=== PATIENT | male | born 1955 | race Asian ===

== ENCOUNTER 2019-12-17 09:23 | Inpatient (IN) | payer BC ==
[~2019-12-17] VITALS: Ht 167.6 cm; Wt 63.0 kg
--- NOTE | 2019-12-17 09:34 | NUR ---
PATIENT BIB [facility] PER MEDIC FROM HOME , C/O COUGH AND BODY ACHES, FEVER, X1WEEK. PER MEDIC AT HOME HAS BEEN SICK. PER PATIENT "I FELT DIZZY 30MINS PRIOR TO ARRIVAL AND FELL AT HOME AND MY CALLED AN AMBULANCE". PATIENT DENIES DIZZINESS OR ANY PAIN AT THIS TIME, NO KO. PATIENT IS AAOX4, NO DISTRESS NOTED, RESP E/U. NO NEURO DEFICITS NOTED AT THIS TIME. SKIN INTACT, PINK, WARM AND DRY. PATIENT GOWNED, PLACED ON FULL CM, NSR NOTED. BED AT LOWEST POSITION, SIDE RAILS UP X2 FOR SAFETY, CALL LIGHT WITHIN REACH. PATIENT AWAITING MSE BY .
--- NOTE | 2019-12-17 09:59 | NUR ---
DR JACKSON AT BED SIDE FOR MSE TO PATIENT.
--- NOTE | 2019-12-17 10:05 | NUR ---
EKG IN PROGRESS BY EMT "CHRISTINE".
[2019-12-17 10:07] LABS: BASOPHIL % 0.3 % (0-2); PLATELET COUNT 136 x10^3mcL (130-400); RED CELL DISTRIBUTION WIDTH 12.5 % (11.5-14.5)
[2019-12-17 10:41] LABS: T3 TOTAL 0.58 ng/mL
[2019-12-17 10:47] LABS: ALBUMIN 3.7 g/dL (3.4-5.0); ALKALINE PHOSPHATASE 47 U/L (46-116); ALT/SGPT 35 U/L (16-63); AST/SGOT 29 U/L (15-37); BILIRUBIN TOTAL 0.5 mg/dL (0.20-1.00); C REACTIVE PROTEIN 3.5 mg/dL (<=0.9); CALCIUM 9.2 mg/dL (8.5-10.1); CARBON DIOXIDE 25.5 mmol/L (21-32); CHLORIDE SERUM 88 mmol/L (98-107); CREATININE SERUM 0.9 mg/dL (0.7-1.3); GFR1 > 60 mL/min; GLUCOSE SERUM 142 mg/dL (74-106); POTASSIUM SERUM 3.9 mmol/L (3.5-5.1); TOTAL PROTEIN, SERUM 7.7 g/dL (6.4-8.2)
[2019-12-17 11:23] LABS: CK-MB 0.8 ng/mL (0-3.6)
[2019-12-17 11:25] LABS: FREE T4 1.12 ng/dL (0.76-1.46); FREE THYROXINE INDEX 2.6 ug/dL (1.4-4.5); T4(THYROXINE) 6.3 ug/dL (4.7-13.3)
--- NOTE | 2019-12-17 11:50 | NUR ---
DR JOHANSEN AT THE BEDSIDE DISCUSSING PLAN OF CARE TO PATIENT.
--- NOTE | 2019-12-17 12:01 | NUR ---
MEDICATED PER MD ORDERS, SEE EMAR. PT VERBALIZED UNDERSTANDING OF MEDICATION TEACHING. IV FLUIDS INFUSING, NO INFILTRATION OR PAIN NOTED TO IV SITE WHEN FLUSHED. WILL CONT TO MONITOR.
[2019-12-17] MEDS ORDERED: AMLODIPINE BES1 CAP PO (12:04)
--- NOTE | 2019-12-17 12:05 | NUR ---
RT AT BED SIDE DRAWING BLOOD GAS.
[2019-12-17 12:11] LABS: SODIUM SERUM 122 mmol/L (136-145)
--- NOTE | 2019-12-17 12:15 | NUR ---
SPOKE TO PATIENT , PER PATIENT OK TO UP DATE . AWARE PATIENT IS ADMITTED TO TELE.
[2019-12-17 12:19] LABS: ERYTHROCYTE SED RATE 16 mm/hr (0-20)
[2019-12-17 12:36] LABS: microscopic required? YES; urine erythrocyte TRACE (NEGATIVE)
--- NOTE | 2019-12-17 13:00 | NUR ---
ASSISTED PT TO BEDSIDE CAMMODE, PT AMBULATED WITH A STEADY GAIT.
--- NOTE | 2019-12-17 13:15 | NUR ---
ASSISTED PT FROM BEDSIDE CAMMODE BACK TO ER [place]. NO DISTRESS NOTED, RESP E/U. WILL CONT TO MONITOR.
--- NOTE | 2019-12-17 13:40 | NUR ---
GAVE REPORT TO LIVIER ON TELE UNIT WHO IS RECEIVING REPORT FOR DENIA, WHO WILL ASSUME FURTHER CARE OF THIS PATIENT.
[2019-12-17 14:39] VITALS: BP 148/84
--- NOTE | 2019-12-17 14:52 | NUR ---
RECEIVED PT FROM ER, PT ADMIT FOR SYNCOPE, INFLUENZA B, DEHYDRATION. PT IS A/O X4, VERBAL RESPONSIVE AT THIS MOMENT, LUNG SOUND CLEAR BILATERAL, OCCASIONALLY DRY COUGH, DENY ANY SOB. PO2 96% IN ROOM AIR. PT IS ON TELE 32. NSR, DENY ANY CHEST PAIN OR DISCOMFORT. BOWEL SOUND PRESENT ALL 4 QUADRANTS, NO DISTENTION, NO TENDER. PEDAL PULSE PRESENT BOTH FEET, NO EDEMA, IV AT RIGHT AC, NO LEAKING, NO INFILTRATION. ALL ADLS ASSIST, ALL NEED MET, CALL LIGHT IN REACH, WILL CONTINUE TO MONITOR.
--- NOTE | 2019-12-17 16:56 | NUR ---
AT 1440 - TOOK OVER CARE OF PATIENT. PATIENT IS ON ISOLATION FOR INFLUENZA B. IV INFUSION OF NS COMMENCED AT 100 ML/HR. PATIENT GIVEN SNACK AND DRINKS. ENCOURAGED HYDRATION. INSTRUCTED TO CALL FOR NURSE IF HE NEEDS TO GET OUT OF BED. AT 1500 - GIVEN TYLANOL PER EMAR FOR TEMP OF 100.3. PATIENT HAS A DRY COUGH. AT 1600 - AMBULATED TO BATHROOM AND BACK TO BED. PATIENT HAS DIARRHEA.
[2019-12-17 18:00] VITALS: BP 134/80
--- NOTE | 2019-12-17 19:06 | NUR ---
LAST TEMP 99.8. PATIENT WAS ABLE TO EAT SMALL AMOUNT OF FOOD FOR DINNER. IV INFUSING NS AT 100 ML/HR. WILL ENDORSE CARE TO NIGHT NURSE.
[2019-12-17 20:00] VITALS: BP 126/76
[2019-12-18] VITALS (7 sets, daily range): BP systolic 103–141; BP diastolic 62–84
--- NOTE | 2019-12-18 04:05 | NUR ---
@1945 RECEIVED A/A/O X4.DENIES ANY DISCOMFORT @ THIS TIME.IVF NS @ 100 ML/HR INFUSING WELL.DENIES SOB.O2 SAT ON RA 98%.TELE SHOWED SR.
--- NOTE | 2019-12-18 04:10 | NUR ---
TYLENOL PO ADM. C/O PRODUCTIVE COUGH WITH GREENISH PLEGM,SMALL IN AMOUNT& REQUESTED MED FOR COUGH.EXPLAINED TO PT HAS NO MED FOR COUGH @ THIS TIME,BUT WILL CALL MD FOR MED.PT VERBALIZED UNDERSTANDING OF THE EXPLAINATION GIVEN.
--- NOTE | 2019-12-18 04:15 | NUR ---
@3687 WAS CALLED RE: COUGH MED; RESPONDED & STATED WILL ENTER ORDER.
--- NOTE | 2019-12-18 04:18 | NUR ---
@0740 TESSALON PO FOR COUGH ADM.
--- NOTE | 2019-12-18 04:20 | NUR ---
@0000 TEMP 100.2.WILL CON'T TO MONITOR TEMP.
--- NOTE | 2019-12-18 04:21 | NUR ---
0400 TEMP 98.2 AXILLARY.IVF INFUSING WELL.
--- NOTE | 2019-12-18 06:40 | NUR ---
ENDORSED IN NO ACUTE DISTRESS.IVF INFUSING WELL.SAFETY MAINTAINED.CALL LIGHT WITHIN REACH.
[2019-12-18 07:31] LABS: BASOPHIL % 0.4 % (0-2); RED CELL DISTRIBUTION WIDTH 12.1 % (11.5-14.5)
[2019-12-18 07:47] LABS: PLATELET COUNT 125 x10^3mcL (130-400)
[2019-12-18 08:32] LABS: CALCIUM 8.2 mg/dL (8.5-10.1); CARBON DIOXIDE 24.4 mmol/L (21-32); CHLORIDE SERUM 96 mmol/L (98-107); CREATININE SERUM 0.8 mg/dL (0.7-1.3); GFR1 > 60 mL/min; GLUCOSE SERUM 105 mg/dL (74-106); POTASSIUM SERUM 3.3 mmol/L (3.5-5.1); SODIUM SERUM 130 mmol/L (136-145)
--- NOTE | 2019-12-18 09:45 | NUR ---
AT 0800 - RECEIVED PATIENT FROM NIGHT NURSE. AWAKE, ALERT AND ORIENTED TO PERSON, PLACE, TIME AND SITUATION. NO DIZZINESS AT THIS TIME BUT PATIENT REPORTS GENERALIZED WEAKNESS AND MALAISE. DECREASED APPETITE. RESPIRATIONS REGULAR. ON ROOM AIR. O2 SAT 99%. DRY COUGH. IV INFUSING NS AT 100ML/HR. PATIENT IS ON ISOLATION FOR R/O COVID-19. AT 0900 - GIVEN 20 MEQ KCL PO FOR K+ LEVEL OF 3.3. ALSO MEDICATED WITH TESSALON PEARLES FOR COUGH. AT 0940 - RECEIVED CALL FROM LAB WITH RESULTS. PATIENT IS POSITIVE FOR COVID-19. MACADAM RAKER MURRAY MADE AWARE.
--- NOTE | 2019-12-18 10:52 | NUR ---
CALLED TO [facility] AND SPOKE W/ [employer] AND INFORMED OF THE RESULTS OF THE COVID-19 WHICH IS POSITIVE.SHE'S REQUESTING TO FAX THE RESULTS AND THE FACE SHEET. ASKED THEIR FAX NO.[phone].
--- NOTE | 2019-12-18 16:56 | NUR ---
AT 1237 - TEMP 102.1 CHARGE NURSE IVONE CALLING [employer] WORKER MURRAY TO NOTIFY OF PATIENT'S FEVER. AT 1245 - MEDICATED WITH TYLANOL PER EMAR. PATIENT ENCOURAGED WITH PO FLUID HYDRATION. IV INFUSING NS AT 100ML/HR NS. PLACED ON SUPPLIMENTAL O2 VIA NC AT 2L/MIN. PROVIDED WITH INSENTIVE SPIROMETER AND INSTRUCTED IN USE. ENCOURAGED TO USE AT LEAST 10 X Q HR. AT 1515 - RESTING QUIETLY. HR 80'S. O2 SAT 97%. TEMP 99.7.
--- NOTE | 2019-12-18 18:38 | NUR ---
AWAKE, ALERT AND ORIENTED. CURRENTLY AFEBRILE. BP STABLE. MONITOR SHOWING SINUS RHYTHM; RATE 80'S & 90'S. NO C/O PAIN. RESPIRATIONS REGULAR. ON TESSALON PEARLES FOR COUGH. REMAINS ON O2 VIA NC AT 2L/MIN. O2 SAT 96-99%. USING INSENTIVE SPIROMETER EFFECTIVELY. TAKING PO LIQUIDS BUT APPETITE REMAINS VERY POOR. IV INFUSING NS AT 100 ML/HR. VOIDING IN URINAL AND BATHROOM. GOOD URINE OUTPUT. ISOLATION FOR COVID-19 MAINTAINED. WILL ENDORSE CARE TO NIGHT NURSE.
--- NOTE | 2019-12-18 19:36 | NUR ---
Pt. received from day shift, currently awake. Pt. is a/o x4, able to make most needs known, able to follow commands, no c/o h/a. Pt. is breathing even and unlabored, on 2L via NC no c/o of SOB or s/o distress. Pt. noted to have a fever during day shift, will continue to monitor. Pt. at this time has no c/o chest pain, pain or discomfort. Otherwise, pt. stable, pt. educated on when and how to use call light system, pt. call light placed within reach, will continue to monitor.
--- NOTE | 2019-12-19 00:07 | NUR ---
pT. C/O OF H/A DURING SHIFT, MEDICATED W/ TYLENOL ORDERED. OTHERWISE, PT. STABLE, WILL CONTINUE TO MONITOR PT.
--- NOTE | 2019-12-19 04:11 | NUR ---
Pt. at this time says, h/a came back. dull pain 11/29, pt. requesting for tylenol. Will medicate as ordered and continue to monitor.
[2019-12-19 04:28] VITALS: BP 141/82
--- NOTE | 2019-12-19 05:57 | NUR ---
Pt. noted to be asleep throughout shift, IV site patent and in tact. Pt. ambulatory to the restroom, pt. states he passed urine and passed a small but formed bowel movement throughout shift. Pt. c/o of h/a 2x throughout shift, and was medicated with tylenol each time. Pt. states it helped. Pt. noted to have low grade fever at beginning of shift, pt. was given tylenol with h/a, and this morning, temp was 98.0. Otherwise, pt. stable, pt. breathing even and unlabored, on 2L via NC, O2 sat at 97%, will continue to monitor and endorse care to next shift RN.
[2019-12-19 08:11] VITALS: BP 132/80
[2019-12-19 09:09] LABS: BASOPHIL % 0.3 % (0-2); PLATELET COUNT 134 x10^3mcL (130-400); RED CELL DISTRIBUTION WIDTH 12.4 % (11.5-14.5)
[2019-12-19 09:12] LABS: CALCIUM 8.4 mg/dL (8.5-10.1); CARBON DIOXIDE 25.3 mmol/L (21-32); CHLORIDE SERUM 93 mmol/L (98-107); CREATININE SERUM 0.8 mg/dL (0.7-1.3); GFR1 > 60 mL/min; GLUCOSE SERUM 140 mg/dL (74-106); SODIUM SERUM 126 mmol/L (136-145)
--- NOTE | 2019-12-19 11:14 | NUR ---
AT 0800 - RECEIVED PATIENT FROM NIGHT NURSE. AWAKE, ALERT AND ORIENTED X 4. MONITOR SHOWING SINUS RHYTHM; RATE 78. AFEBRILE. BP WNL. RESPIRATIONS REGULAR. O2 SAT 100% ON 2L VIA NC. PATIENT REPORTS USING INSENTIVE SPIROMETER. DENIES ANY SHORTNESS OF BREATH. SAT ON SIDE OF BED FOR BREAKFAST. AT 0920 - PATIENT WAS ABLE TO TOLERATE ONLY 20% OF FOOD ON BREAKFAST TRAY. GIVEN TESSALON PEARLES PER EMAR FOR PERSISTANT COUGH. MINIMAL SPUTUM. PATIENT SAT OUT OF BED FOR SHORT TIME. GOOD ACTIVITY TOLERANCE. AT 1050 - GIVEN 40 MEQ KCL PO FOR K+ LEVEL OF 3.0 AND 2 G SODIUM PO FOR NA LEVEL OF 126.
[2019-12-19 12:36] VITALS: BP 120/75
[2019-12-19 14:50] VITALS: BP 132/69
--- NOTE | 2019-12-19 16:45 | NUR ---
AT 1450 - TEMP 101.7 MEDICATED WITH TYLANOL PER EMAR. IV IN RAC INFILTRATED. CATHETER REMOVED INTACT. IV RESITED IN LFA AND IV INFUSION OF NS RESUMED AT 100 ML/HR. PATIENT CONTINUES TO HAVE DRY COUGH WITH SCRATCHY THROAT. AT 1640 - RECEIVED CALL FROM DR GO. UPDATED ON PATIENT CONDITION. CONTINUE WITH TAMIFLU. HE WILL SEE PATIENT LATER TODAY.
[2019-12-19 17:53] VITALS: BP 130/79
--- NOTE | 2019-12-19 18:54 | NUR ---
AT 1740 - TEMP 99.6 BP STABLE. O2 SAT 96% ON 2L. PATIENT USING INSENTIVE SPIROMETER. AT 1800 - REMAINS UNCHANGED. MONITOR SHOWING SINUS RHYTHM; RATE 80. NO C/O PAIN. AMBULATES TO BATHROOM FOR TOILET NEEDS. TAKING PO FLUIDS BUT APPETITE REMAINS POOR. C/O PERSISTANT COUGH, GENERALIZED WEAKNESS AND MALAISE. WILL ENDORSE CARE TO NIGHT NURSE.
[2019-12-19 20:20] VITALS: BP 131/78
--- NOTE | 2019-12-19 20:20 | NUR ---
PT IS A/O x4. TELE #32, NSR. DENIES ANY CHEST PAIN OR PRESSURE. PULSES ARE PRESENT. NO EDEMA NOTED. LUNGS CLEAR IN ALL FEILDS. ON 2L NC. COUGH NOTED, PT REPORTS SCANT SPUTUM, CLEAR. BOWEL SOUNDS ARE PRESENT x4. GENERAL WEAKNESS. PT NOTED TO NEED ASSISTANCE FOR AMBULATION, SOB AND FATIGUE. SKIN INTACT. COMPLAIN OF ROBIN, 4/10. TYLENOL GIVEN PER EMAR. IV ON LFA INTACT AND PATENT. NO SIGN OF INFILTRATION NOTED. PT ON DROPLET/CONTACT ISO, POSTIVE FOR COVID19. BED IS AT LOWEST SETTING CALL LIGHT WITHIN REACH. WILL CONTINUE TO MONTIOR.
--- NOTE | 2019-12-20 06:39 | NUR ---
PT IS RESTING IN BED. PT SEEM A LITTLE DOWN THIS MORNING. NO TALKATIVE LAST NIGHT. COMPLAIN OF MILD ROBIN, TYLENOL GIVEN PER EMAR. BED IS AT LOWEST SETTING. CALL LIGHT WITHIN REACH. WILL ENDORSE TO AM NURSE.
[2019-12-20 06:54] VITALS: BP 126/83
--- NOTE | 2019-12-20 07:30 | NUR ---
PT ENDORSE TO ME THIS MORNING, SITTING UP IN BED,AA/O X4, REMAINS ON DROPLET/CONTACT/ ISOLATION. BREATHING EVEN AND UNLABORED ON RA,NO ACUTE RESP DISTRESS OR SOB NOTED/ CTA SATING AT 96%. TELE 32 SR NOTED, DENIES ANY CP OR PRESSURE. PER PT LAST BM 12/19 FORMED. VOIDS FREELY. AMB/ GEN WEAKNESS NOTED/ KNOWS TO CALL FOR ASSIST. SKIN INTACT/ WARM TO TOUCH. IV THE THE LFA INTACT AND PATENT/ NS INFUSING AT 100 ML/HR/ PATENT. CALL LIGHT IN REACH. BED IN LOW POSITION. WILL CONTINUE TO MONITOR.
[2019-12-20 09:33] VITALS: BP 130/80
[2019-12-20 13:26] VITALS: BP 105/62
--- NOTE | 2019-12-20 13:27 | NUR ---
PT SITTING UP IN BED, CURRENT TEMP 99.0, MEDICATED PER EMAR, REFUSE COOLING MEASURES. BP 105/62, HR 81, 94 RA NO ACUTE RESP DISTRESS OR SOB NOTED. DENIES ANY CP OR PRESSURE. IS C/O COUGH, MEDICATED PER EMAR. SET UP LUNCH. WILL CONTINUE TO MONITOR.
[2019-12-20 17:58] VITALS: BP 132/86
--- NOTE | 2019-12-20 18:39 | NUR ---
NO ACUTE CHANGES AT THIS TIME, NO ACUTE RESP DISTRESS OR SOB NOTED. REMAINS ON RA SATING AT 93-94 %/ DENIES ANY CP OR PRESSURE. WILL ENDORSE TO INCOMING RN.
[2019-12-20 19:45] VITALS: BP 123/75
--- NOTE | 2019-12-20 19:58 | NUR ---
RECIEVED PT FROM PREVIOUS SHIFT NURSE. PT RESTING IN BED, HOB ELEVATED, AOX4, SPEECH CLEAR, ABLE TO FOLLOW COMMANDS, DENIES ROBIN, N/V, OR PAIN AT THIS MOMENT. RR EVEN AND UNLABORED ON 2L/NC, CHEST RISING EQUALLY, DRY COUGH NOTED AT THE TIME, DENIES SOB OR DIFFCULTY BREATHIHG. NO SIGNS OF ACUTE DISTRESS NOTED. PT ON CONTACT/ DROPLET PRECAUTION FOR + INFLUENZA A&B AND COVID-19. TELE #32 NSR, DENIES CHEST PAIN OR PRESSURE. BED IN LOWEST POSITION AND CALL LIGHT WITHIN REACH. WILL CONTINUE TO MONITOR.
--- NOTE | 2019-12-21 01:54 | NUR ---
PT RESTING IN BED, EASILY AROUSABLE. RR EVEN AND UNLABORED ON 2L/NC. CHEST RISING EQUALLY. NO SIGNS OF ACUTE DISTRESS NOTED. TELE #32 NSR. IV LFA, NS RUNNING AT 100ML/HR. BED IN LOWEST POSITION AND CALL LIGHT WITHIN REACH. WILL CONTINUE TO MONITOR.
[2019-12-21 06:24] VITALS: BP 151/86
--- NOTE | 2019-12-21 06:26 | NUR ---
PT RESTING IN BED, HOB ELEVATED, AOX4, SPEECH CLEAR, NO FACIAL DROOPING NOTED, DENIES ROBIN, N/V, OR PAIN AT THIS MOMENT. RR EVEN AND UNLABORED ON 3L/NC, CHEST RISING EQUALLY, DENIES SOB OR DIFFICULTY BREATHING, COUGH NOTED. NO SIGNS OF ACUTE DISTRESS NOTED. TELE 32 NSR, DENIES CHEST PRESSURE OR PAIN. IV LFA WNL, NS RUNNING AT 100ML/HR. PT ON DROPLET AND CONTACT PRECAUTION FOR POSITIVE INFULUENZA A&B, AND COVID-19. BED IN LOWEST POSITION AND CALL LIGHT WITHIN REACH. WILL CONTINUE TO MONITOR.
--- NOTE | 2019-12-21 07:05 | NUR ---
RECEIVED PT FROM TIMBER SKIDDER NURSE. PT RESTING IN BED, AOX4, RESP E/U ON 3L NC. NO ACUTE DISTRESS NOTED. ON TELE 32 SHOWING NSR, HR: 98. IV TO LFA W/ NO SIGNS OF INFILTRATION, IVF INFUSING WELL. BED IN LOWEST POSITION AND CALL LIGHT WITHIN REACH. CONTACT/DROPLET PRECAUTIONS IN PLACE. WILL CONTINUE TO MONITOR.
[2019-12-21 07:18] LABS: PLATELET COUNT 170 x10^3mcL (130-400); RED CELL DISTRIBUTION WIDTH 12.1 % (11.5-14.5)
[2019-12-21 07:27] LABS: BASOPHIL % 0 % (0-2)
[2019-12-21 07:32] LABS: CARBON DIOXIDE 25.4 mmol/L (21-32); CREATININE SERUM 0.7 mg/dL (0.7-1.3); GFR1 > 60 mL/min; GLUCOSE SERUM 107 mg/dL (74-106); SODIUM SERUM 125 mmol/L (136-145)
[2019-12-21 07:36] LABS: CHLORIDE SERUM 100 mmol/L (98-107); POTASSIUM SERUM 2.8 mmol/L (3.5-5.1)
[2019-12-21 08:55] VITALS: BP 135/89
[2019-12-21 11:45] VITALS: BP 110/70
--- NOTE | 2019-12-21 13:35 | NUR ---
PT RESTING IN BED, AXO4, RESP LABORED ON 4L NC. C/O DRY COUGH AND MILD SOB. O2: 94%. HOB ELEVATED, MEDICATED ORDERED PER EMAR, COMFORT MEASURES IMPLEMENTED. BED IN LOWEST POSITION AND CALL LIGHT WITHIN REACH. WILL CONTINUE TO MONITOR.
[2019-12-21 17:30] VITALS: BP 128/82
--- NOTE | 2019-12-21 18:00 | NUR ---
PT SITTING UPRIGHT IN BED, AOX4, RESP E/U ON 3L NC. DRY COUGH NOTED AT THIS TIME, PT OTHERWISE DENIES SOB, O2 SAT 94-95%. IV TO LFA W/ NO SIGNS OF INFITLRATION, IVF INFUSING WELL. BED IN LOWEST POSITION AND CALL LIGHT WITHIN REACH. WILL ENDORSE TO ONCOMING NURSE.
--- NOTE | 2019-12-21 20:11 | NUR ---
PATIENT RECEIVED AWAKE, ALERT, ORIENTED X4. C/O DRY COUGH, ON O2 3L PER NASAL CANNULA. ONGOING 0.9% NS AT 100 CC/HR INFUSING WELL AT THE LT FOREARM. DENIES PAIN. POOR APPETITE. LBM 12/21/19. VOIDING FREELY WITHOUT DIFFICULTY. GENERALIZED WEAKNESS. SKIN DRY AND INTACT. ON DROPLET/CONTACT ISOLATION. ON TELE #32. WILL CONTINUE TO MONITOR.
[2019-12-21 22:20] VITALS: BP 135/97
[2019-12-22] VITALS (10 sets, daily range): BP systolic 85–145; BP diastolic 60–89
--- NOTE | 2019-12-22 06:17 | NUR ---
PATIENT RESTING IN BED. POSITIVE DRY COUGH, RESPIRATION EVEN AND UNLABORED, ON O2 4L PER NASAL CANNULA. IV SITE PATENT AND INTACT. ASSISTED WITH NEEDS. SAFETY OBSERVED.PLACED BED IN THE LOWEST POSITION. PLACED CALL LIGHT WITHIN REACH AT ALL TIMES. ON DROPLET/CONTACT ISOLATION.
[2019-12-22 06:31] LABS: PLATELET COUNT 203 x10^3mcL (130-400); RED CELL DISTRIBUTION WIDTH 12.4 % (11.5-14.5)
[2019-12-22 06:53] LABS: BASOPHIL % 0 % (0-2); CALCIUM 8.2 mg/dL (8.5-10.1); CARBON DIOXIDE 25.9 mmol/L (21-32); CHLORIDE SERUM 87 mmol/L (98-107); CREATININE SERUM 0.6 mg/dL (0.7-1.3); GFR1 > 60 mL/min; GLUCOSE SERUM 115 mg/dL (74-106)
[2019-12-22 06:57] LABS: SODIUM SERUM 121 mmol/L (136-145)
--- NOTE | 2019-12-22 09:00 | NUR ---
AAO TIMES 4. VS'S STABLE. LUNGS SLIGHTLY DIMINISHED BILATERALLY. O2 SAT ON 4L NC 100%. BS'S ACTIVE TIMES 4. USING BSC AND URINAL. GET SOB AND O2 SAT DROPS WITH AMBULATION TO BRP. PERIPHERAL PULSES PALPABLE. NO EDEMA. COOPERATIVE. IV SITE CDI.
[2019-12-22 13:36] LABS: CALCIUM 8.5 mg/dL (8.5-10.1); CARBON DIOXIDE 27.2 mmol/L (21-32); CHLORIDE SERUM 89 mmol/L (98-107); CREATININE SERUM 0.7 mg/dL (0.7-1.3); GFR1 > 60 mL/min; GLUCOSE SERUM 137 mg/dL (74-106); POTASSIUM SERUM 3.2 mmol/L (3.5-5.1)
[2019-12-22 13:44] LABS: SODIUM SERUM 122 mmol/L (136-145)
--- NOTE | 2019-12-22 14:30 | NUR ---
O2 SENSOR NOT READING. HE WAS CO SOB. I GAVE HIM HIS AND HE RECEIVED 2 PUFFS. I SWITCHED OUT THE WIRES, NOT WORKING. I SWITCHED OUT THE FINGER SENSOR, ON 4L NC HIS O2 SAT WAS 77. I APPLIED A SIMPLE O2 MASK AND TURNED IT UP TO 6 LITRES, I GOT 84 ON HIS O2 SAT. I TURNED IT UP TO 10 LITRES AND I GOT 86%. A NON REBREATHER MASK WAS APPLIED AT 15 LITRES, AND THE O2 SAT IN NOW 94%. MICHAEL POND WAS NOTIFIED, WAITING FOR HER DIRECTION.
--- NOTE | 2019-12-22 15:35 | NUR ---
PRIOR TO TRANSFER, I MADE A CALL TO HIS , TO NOTIFY HER OF HIS TRANSFER TO ICU, THEN I TRANSFERRED THE CALL TO HIM SO HE COULD SPEAK WITH HER. HIS O2 SAT ON NRB MASK 15 LITRES, WAS 94%. HE TRANSFERRED TO ICU BED 6, DR CACERES WAS THERE, THEY INTUBATED HIM. AMY SANCHEZ RN CALLED HIS TO NOTIFY HER OF HIM BEING INTUBATED.
--- NOTE | 2019-12-22 16:00 | NUR ---
RECEIVED PT FROM [facility], WHO IS COVID 19 POSITIVE. PT IS INTUBATED 7.5 ETT, 25 CM LL. START PT SEDATION ON PROPOFOL, VERSED AND FENTANYL AT THIS TIME. APOLONIA SOFT WRIST RESTRAINTS.
--- NOTE | 2019-12-22 16:20 | NUR ---
1547- DR CACERES AT BEDSIDE FOR INTUBATION WITH ISABEL RN AND FARRKUH RT. PATIENT ADMINISTERED 20 MG ETOMIDATE IVP. 1549- PATIENT ADMINISTERED 60 MG SUCC'S IVP 1552- PATIENT ADMINISTERED 20 MG ETOMIDATE IVP 1553- PATIENT INTUBATED WITH 7.5 ETT. PATIENT PLACED ON VENT SETTINGS AC MODE RATE 16, VT 500, PEEP 10, FIO2 100%. BP 157/97, HR 106, RR 27, SPO2 68%. ISABEL SANTANA INSERTED OGT AND LAMB CATHETER S/P INTUBUATION. RESTRAINTS APPLIED PER DR CACERES ORDER PATIENT ATTEMPTING TO PULL ON TUBING AND LINES.
--- NOTE | 2019-12-22 17:01 | NUR ---
SPOKE WITH DR BRIDGES VIA TELEPHONE. NEW ORDERS RECEIVED FOR 40 MEQ K-RIDER TO BE INFUSED. WILL CARRY OUT ORDER.
[2019-12-22 17:50] LABS: CALCIUM 7.7 mg/dL (8.5-10.1); CARBON DIOXIDE 22.3 mmol/L (21-32); CHLORIDE SERUM 91 mmol/L (98-107); CREATININE SERUM 0.6 mg/dL (0.7-1.3); GFR1 > 60 mL/min; GLUCOSE SERUM 125 mg/dL (74-106)
[2019-12-22 18:05] LABS: SODIUM SERUM 123 mmol/L (136-145)
--- NOTE | 2019-12-22 18:41 | NUR ---
PER CXR, ADVANCED OGT 5CM MORE. START KCL 40MEG IV PER ORDER. PT WILL START RECEIVING VITAL AF TUBE FEEDING AT 10ML/H WFW 50 Q6H AFTER KUB CONFIRM OGT PLACEMENT. PT ON VENT VCV MODE WITH SETTING: PEEP 15, RR 16, VT 500, FIO2 100%. O2 SAT 100%. LAMB DRAINING VIA GRAVITY, YELLOW URINE. PT IS SEDATED WITH VERSED 3MG/H, FENTANYL 1MCG/KG/HR. WILL ENDORSE PT'S CARE TO ONCOMING NURSE.
--- NOTE | 2019-12-22 19:01 | NUR ---
RECIEVED REPORT FROM MAX TALBERT. NURSING UPDATES. POC DISCUSSED. SEE SHIFT ASSESSMENT FOR ASSESSMENT.
[2019-12-22 19:36] LABS: CALCIUM 8.2 mg/dL (8.5-10.1); CARBON DIOXIDE 24.1 mmol/L (21-32); CHLORIDE SERUM 91 mmol/L (98-107); CREATININE SERUM 0.8 mg/dL (0.7-1.3); GFR1 > 60 mL/min; GLUCOSE SERUM 116 mg/dL (74-106); POTASSIUM SERUM 3.3 mmol/L (3.5-5.1)
[2019-12-22 19:40] LABS: SODIUM SERUM 123 mmol/L (136-145)
--- NOTE | 2019-12-22 22:11 | NUR ---
VERIFIED DR LY OK NOT TO GIVEN PO KCL PER PREVIOUS IV POTASSIUM GIVEN AND K+ PREVIOUSLY ONLY 3.3.
[2019-12-23] VITALS (18 sets, daily range): BP systolic 92–119; BP diastolic 50–72
--- NOTE | 2019-12-23 | NUR ---
NOTIFIED PER RT FIO2 TITRATED TO 90%. NO S/S OF RESP DISTRESS. O2 SAT 100%.
--- NOTE | 2019-12-23 | NUR ---
DR GO @ BEDSIDE. NURSING UPDATES. POC DISCUSSED. NO NEW ORDERS AT THIS TIME.
--- NOTE | 2019-12-23 02:09 | NUR ---
NOTIFIED PER RT FIO2 TITRATED TO 80%. NO S/S OF RESP DISTRESS. O2 SAT 100%.
--- NOTE | 2019-12-23 05:01 | NUR ---
NOTIFIED PER RT FIO2 70%. O2 SATS 100%. NO S/S OF RESP DISTRESS.
--- NOTE | 2019-12-23 07:08 | NUR ---
DR BRIDGES NEW ORDERS. K RIDER 40MEQ IF K+ < 3.5 AND IF K+ < 4 20MEQ. ALDACTONE TO BE CHANGED TO 50MG TID. AND 40MG LASIX ONE TIME DOSE NOW.
--- NOTE | 2019-12-23 07:23 | NUR ---
RECEIVED REPORT FROM EMORY SANTANA. PATIENT RESTING IN BED SEDATED. FENTANLY INFUSING @ 1 MCG/KG/HR. VERSED INFUSING @ 4MG/HR. LAMB IN PLACE DRAINING YELLOW URINE. VENT SETTINGS: VOL 500, FIO2 70%, PEEP 15, RATE 16. TUBE FEED VITAL AF INFUSING @ 10 ML/HR. BILATERAL WRIST RESTRAINTS IN PLACE. ALL QUESTIONS AND CONCERNS ADDRESSED.
[2019-12-23 08:09] LABS: RED CELL DISTRIBUTION WIDTH 12.1 % (11.5-14.5)
[2019-12-23 08:15] LABS: PLATELET COUNT 199 x10^3mcL (130-400)
--- NOTE | 2019-12-23 09:30 | NUR ---
RT AT BEDSIDE. PATIENT FIO2 DECREASED TO 60% AT THIST TIME.
[2019-12-23 09:52] LABS: CALCIUM 8.1 mg/dL (8.5-10.1); CARBON DIOXIDE 25.7 mmol/L (21-32); CHLORIDE SERUM 93 mmol/L (98-107); CREATININE SERUM 0.9 mg/dL (0.7-1.3); GFR1 > 60 mL/min; GLUCOSE SERUM 101 mg/dL (74-106); SODIUM SERUM 126 mmol/L (136-145)
--- NOTE | 2019-12-23 10:00 | NUR ---
DEJAH RODRIGUEZ AND DR CACERES NOTIFIED OF K 2.[address] BRIDGES PAGED TO CLAIRIFY PREVIOUS K-RIDER ORDER GIVEN TO JORDIN SANTANA.
[2019-12-23 10:03] LABS: POTASSIUM SERUM 2.9 mmol/L (3.5-5.1)
--- NOTE | 2019-12-23 10:20 | NUR ---
DR CACERES AT BEDSIDE TO SEE AND ASSESS PATIENT. ORDER GIVEN TO VJ POWER FOR VENT SETTINGS AND ABG.
--- NOTE | 2019-12-23 10:30 | NUR ---
VENT SETTINGS: TIDAL VOLUME DECREASED TO 450 AND FIO2 DECREASED TO 50%.
--- NOTE | 2019-12-23 10:30 | NUR ---
TELEPHONED DR BRIDGES AND LEFT MESSAGE REGARDING MORNING LABS. AWAITING RETURN CALL.
--- NOTE | 2019-12-23 10:59 | NUR ---
SPOKE WITH DR BRIDGES TO CLARIFY K RIDER ORDERS. INFORMED OF K+ 2.[address] BRIDGES ORDERED 2G SODIUM CHLORIDE NOW, 60 MEQ K-RIDER TO BE GIVEN OVER 6 HOURS, REPEAT BMP ONE HOUR AFTER COMPLETION OF K-RIDER AND IF K+ IS STILL < 3.5 ORDER ANOTHER 40 MEQ K-RIDER. ALSO WANTED MAG LAB TO BE ADDED TO AM LABS.
--- NOTE | 2019-12-23 11:30 | NUR ---
DR CACERES TELEPHONED PATIENT'S AND PROVIDED PATIENT UPDATE. ALL QUESTIONS AND CONCERNS ADDRESSED.
[2019-12-23 12:34] LABS: MONOCYTE 6 % (0-7); SEGMENTED NEUTROPHILS 80 % (37-75)
[2019-12-23 12:35] LABS: rbc morphology (normal/abnorm) NORMAL (NORMAL)
--- NOTE | 2019-12-23 13:28 | NUR ---
PHARMACY CALLED TO BRING MORE VERSED.
--- NOTE | 2019-12-23 19:10 | NUR ---
RECIEVED REPORT FROM MAX GROSS. NURSING UPDATES. POC DISCUSSED. RESUMED CARE OF PT. SEE SHIFT ASSESSMENT FOR ASSESSMENT.
--- NOTE | 2019-12-23 19:44 | NUR ---
REPORT GIVEN TO EMORY SANTANA. UPDATED ON PATIENT CHANGES THROUGHOUT THE DAY. ALL QUESTIONS AND CONCERNS ADDRESSED. ALL CARES ENDORSED.
--- NOTE | 2019-12-23 20:52 | NUR ---
NOTIFIED PER RT FIO2 40%. NO S/S OF RESP DISTERSS. O2 SAT 99%.
[2019-12-23 22:05] LABS: CALCIUM 8.1 mg/dL (8.5-10.1); CARBON DIOXIDE 23.4 mmol/L (21-32); CHLORIDE SERUM 99 mmol/L (98-107); CREATININE SERUM 0.7 mg/dL (0.7-1.3); GFR1 > 60 mL/min; GLUCOSE SERUM 124 mg/dL (74-106); POTASSIUM SERUM 3.7 mmol/L (3.5-5.1); SODIUM SERUM 129 mmol/L (136-145)
--- NOTE | 2019-12-23 23:52 | NUR ---
DR GO @ BEDSIDE. NURSING UPDATES. POC DISCUSSED. NO NEW ORDERS @ THIS TIME.
[2019-12-24] VITALS (19 sets, daily range): BP systolic 100–141; BP diastolic 61–79
--- NOTE | 2019-12-24 02:15 | NUR ---
REPORTED BY RT BAUER PEEP 12 FROM 15.
--- NOTE | 2019-12-24 05:25 | NUR ---
PT RESTING CALMING IN BED. NO ACUTE CHANGES. RETAIL ADVERTISING EXECUTIVE @ BEDSIDE FOR AM LABS.
[2019-12-24 06:00] LABS: BASOPHIL % 0.3 % (0-2); PLATELET COUNT 247 x10^3mcL (130-400); RED CELL DISTRIBUTION WIDTH 12.8 % (11.5-14.5)
[2019-12-24 06:14] LABS: CALCIUM 7.7 mg/dL (8.5-10.1); CHLORIDE SERUM 99 mmol/L (98-107); CREATININE SERUM 0.7 mg/dL (0.7-1.3); GFR1 > 60 mL/min; GLUCOSE SERUM 118 mg/dL (74-106); MAGNESIUM 2.1 mg/dL (1.8-2.4); PHOSPHOROUS 1.4 mg/dL (2.5-4.9); POTASSIUM SERUM 3.5 mmol/L (3.5-5.1); SODIUM SERUM 130 mmol/L (136-145)
--- NOTE | 2019-12-24 11:49 | NUR ---
CINDY FRIAS, PATIENT'S CALLED AND WOULD LIKE MICHAEL GONZALEZ NP TO CALL HER FOR UPDATES REGARDING PATIENT'S HEALTH STATUS. DEJAH RODRIGUEZ MADE AWARE. WILL CONTINUE TO MONITOR.
--- NOTE | 2019-12-24 19:05 | NUR ---
RECIEVED REPORT FROM MAX GROVES. NURSING UPDATES. POC DISCUSSED. SEE SHIFT ASSESSMENT FOR ASSESSMENT.
--- NOTE | 2019-12-24 19:37 | NUR ---
THE PT DID WELL WITH HIS SETTING ON THE VENTILATOR. HOWEVER THE PT HAS LOTS OF THICK SUCRETIONS UPON SUCTIONING THE ET TUBE. HIS LUNG HAVE COARSE BREATH SOUNDS AND RHONCHI. SO2 REMAINS WDL. ALSO BLOOD PRESURRE IS WDL WITHOUT VASO[PRESSORS.
[2019-12-25] VITALS (17 sets, daily range): BP systolic 102–141; BP diastolic 63–83
--- NOTE | 2019-12-25 | NUR ---
NO ACUTE CHANGES. WILL CONT TO MONITOR.
--- NOTE | 2019-12-25 05:21 | NUR ---
DR BUCIO @ BEDSIDE. NURSING UPDATES. POC DICUSSED. NO NEW ORDERS @ THIS TIME.
[2019-12-25 05:23] LABS: CALCIUM 7.9 mg/dL (8.5-10.1); CHLORIDE SERUM 99 mmol/L (98-107); CREATININE SERUM 0.7 mg/dL (0.7-1.3); GFR1 > 60 mL/min; GLUCOSE SERUM 115 mg/dL (74-106); SODIUM SERUM 133 mmol/L (136-145)
[2019-12-25 05:28] LABS: RED CELL DISTRIBUTION WIDTH 11.8 % (11.5-14.5)
[2019-12-25 05:30] LABS: BASOPHIL % 0 % (0-2); PLATELET COUNT 330 x10^3mcL (130-400)
--- NOTE | 2019-12-25 05:41 | NUR ---
VERSED TITRATED FROM 4MG TO 6MG HR PER DR BUCIO AND PT W/ AGITATION.
--- NOTE | 2019-12-25 06:23 | NUR ---
NOTIFIED DR BUSTILLO OF K+ 3.0 AWAITING NEW ORDERS.
--- NOTE | 2019-12-25 15:00 | NUR ---
Initial Nutrition Assessment- Torsten Reece, RM#[id number] Dx: syncope, influenza B, dehydration PMHx: HTN PSHx: none Labs: Na; 133L, K: 3L, Glu: 115H, Ca: 7.9L, P: 1.4L, RBC: 3.88L, H/H: 3.88/12.3L Meds: Aldactone, KCL, lactinex, Lasix, neutral-phos packet, Norvasc, Pepcid, sodium chloride, Tessalon perles, versed, heparin sodium Diet: Tube feeding, orogastric tube, vital AF 1.2, goal rate: 35 mL/hr, advance at 10 mL, free water flush: 50 mL Q6H PO Intakes: Tube feeding Ht: 64 inch Wt: 74 kg (162.8 lbs) BMI: 26.3 IBW: 130 lbs %IBW: 125% UBW: 160 lbs Age: 64 Food Allergies: NKFA Skin: Jagjit: 23 Edema: no edema GI: 12/25/2019 noted net loss of [address] Note (12/25/2019): + COVID 19, pt remains intubated on ventilator per progress note, per progress note: acute hypoxemic resp failure, ARDS, viral PNA, SIADH, syncope likely due to sepsis and dehydration, influenza B, hyponatremia, hypokalemia, HTN; current EN at goal rate provides 63 g protein, 1008 kcals, 881 mL free fluid (counting water flushes) Nursing Trigger - Poor PO intake x 3 days Problem with: N/V/D/C: none per pt's nurse Problems with: Chewing: Swallowing: N/A, on TF Current appetite: on TF Recent wt changes: %wt change: (12/22): 158 lbs, (12/23): 160 lbs, (12/24): 163 lbs Vitamin/Supplement: N/A Special Diet at Home: no Physical activity: N/A Education: education not appropriate at this time, pt on ventilator Estimated Nutritional Needs Based on CBW of 74 kg Energy: 1850- 2220 kcal/d (25-30 kcal/kg for maintenance) Protein: 74-104 gm/d (1-1.4 gm/kg for geriatric maintenance, ARDS, viral PNA) Fluid: 6427-4322 mL/d (1 mL/kcal) or per MD. Nutrition Diagnosis Inadequate intake of enteral nutrition related to intake of TF not meeting needs as evidenced by current rate of 35 mL/hr provides 54% of calorie needs Intervention/RDN Recommendation(s): Rec. Vital AF at 60 mL/hr, advance at 10 mL/hr, as tolerated. At goal rate this will provide, 1728 kcals, 108 g protein, 1368 mL free water (including flushes). This regimen will provide 93% of estimated energy needs, 100% of protein needs and 74% of fluid needs. Spoke with patient's nurse Ramón about increasing the tube feed. Also spoke with Armida, she will leave a message for Michael (HOSPITALITY COORDINATOR). Monitor/Evaluate Goal: Have pt meet at least 75% of estimated needs from nutrition support Monitor: tube feeding tolerance, Labs, GI function, Skin integrity, Weights. F/U in _2-3_ days as HR on 12/26-
--- NOTE | 2019-12-25 20:07 | NUR ---
CARED FOR THIS COVID+ PT THROUGHOUT THE DAY. IT WAS AN UNEVENTFULL DAY THE PT STAYED ON THE SAME SETTINGS. HE WAS GIVEN LASIX AND ALDACTONE WHICH GOT GOOD RESULTS OF 2200CCS OUT. HE IS ON FEEDINGS WELL. VITAL 1.2 AT 30CC PER HOUR. THE PT NEEDS NO BLOOD MECICAL PRESSURE SUPPORT. HE REMAINED STABLE WITH THE VENTILATOR THROUGHOUT THE DAY.
--- NOTE | 2019-12-25 20:10 | NUR ---
RECEIVED PT VENTED WITH AC MODE SETTINGS TV 450,RATE 16,O2 @ 40% AND PEEP 5.O2 SAT @ 98%.OGT TUBE TO AF FEEDING @ 35 ML/HR.30 ML RESIDUAL.HOB KEPT ELEVATED.NO COUGHING/CONGESTION NOTED.FINE CRACKLES ON AUSCULTATION.ON FENTANYL DRIP @ 1.5 MCG/KG/HR AND VERSED DRIP @ 7 MG/HR.F/C TO YELLOW COLORED URINE.ON DROPLET PRECAUTION FOR + COVID.GOODHANSWASHING TECHNIQUE OBSERVED.WILL OBSERVE PROTOCOL.WILL CONTINUE TO MONITOR.
--- NOTE | 2019-12-25 23:53 | NUR ---
PT REMAINED VENTED WITH SAME SETTINGS.O2 SAT @ 97%.SUCTIONED PRN BY RT NEEDED.BP 129/83 MMHG,HR 92.GTFEEDING INFUSING AND TOLERATING WELL.FENTANYL DRIP @ 1.5 MCG/KG/HR AND VERSED @ 7 MG/HR.BILATERAL SOFT WRIST RESTRAINTS IN PLACED.F/C TO YELLOW COLORED URINE.COVID +.ON FROPLET PRECAUTION.GOODHANDWASHING TECHNIQUE OBSERVED.WILL CONTINUE TO MONITOR.
[2019-12-26] VITALS (15 sets, daily range): BP systolic 96–146; BP diastolic 54–86
--- NOTE | 2019-12-26 04:12 | NUR ---
REASSESSMENT DONE.PT REMAINS VENTED WITH SAME SETTINGS.SUCTIONED PRM TO THICK WHITISH PHLEGM.HOB KEPT ELEVATED.TOLERATED GT FEEDIMG WELL.NO ASPIRATION NOTED.REPOSITIONED THIS TIME.WILL CONTINUE TO MONITOR.
--- NOTE | 2019-12-26 05:22 | NUR ---
MORNING CARE RENDERED.CHANGED GOWN AND LINENS.EMPTIED 1300 ML YELLOW COLORED URINE.SUCTIONED DC.ON FENTANYL DRIP @ 1.5 MCG/KG/HR AND VERSED @ 7 KG/HR.TURNED AND REPOSITIONED.BILATERAL SOFT WRIST RESTRAINTS IN PLACES.ALL NEEDS AMTICIPATED.WILL CONTINUE TO MONITOR.
[2019-12-26 05:50] LABS: BASOPHIL % 0.3 % (0-2); RED CELL DISTRIBUTION WIDTH 12.8 % (11.5-14.5)
[2019-12-26 05:55] LABS: PLATELET COUNT 433 x10^3mcL (130-400)
[2019-12-26 06:14] LABS: CALCIUM 8.5 mg/dL (8.5-10.1); CARBON DIOXIDE 27.5 mmol/L (21-32); CHLORIDE SERUM 98 mmol/L (98-107); CREATININE SERUM 0.7 mg/dL (0.7-1.3); GFR1 > 60 mL/min; GLUCOSE SERUM 116 mg/dL (74-106); MAGNESIUM 1.9 mg/dL (1.8-2.4); PHOSPHOROUS 3.1 mg/dL (2.5-4.9); SODIUM SERUM 133 mmol/L (136-145)
--- NOTE | 2019-12-26 06:15 | NUR ---
HOLD FEEDING FOR NOW.RT NOTED SOME FEEDING BACKING UP FROM VENT TUBINGS EVERYTIME PT COUGHS.NO RESIDUAL NOTED.CHECK OGT PLACEMENT + PLACEMENT NO ASPIRATION NOTED.DIMINISHED BREATHSOUNDS AT THIS TIME.O2 SAT @ 95%.HOB KEPT ELEVATED.DR. HORNE MADE AWARE AND OK TO HOLD FEEDING AT THIS TIME.WILL EMDORSE TO AM NURSE.
--- NOTE | 2019-12-26 11:00 | NUR ---
PT WAS ON CPAP FOR ABOUT 2.5 HOURS HE IS NOW BACK ON AC I RESTARTED SEDATION VERSED IS AT 7MG/HR FENTANYL 2 MCG/KG/HR
--- NOTE | 2019-12-26 18:44 | NUR ---
CARED FOR THE PT WHO IS COVID POSITIVE. DROPLET PRECAUTIONS ALL SHIFT. I TOLD BY THE STUDENT SUCCESS ADVISOR THAT THE PT WAS HAVING FEEDING TYPE SUBSTANCE IN HIS RESPIRATORY FEEDING. I THEREFORE CHECKED IT AND WAS UNSURE SO I REINSERTED IT FOR SAFETY PURPOSES. THE TUBE IS IN THE STOMACH PER XRAY. I STARTED THE FEEDING.
--- NOTE | 2019-12-26 19:15 | NUR ---
PT RECEIVED FROM AM NURSE. PT RESTING IN BED WITH EYES CLOSED, VENTED AND SEDATED ON FENTANYL 2 MCG/KG/HR AND VERSED 7 MG/HR. 7.5 ETT @ 22 LL TO VENT ON VCV-A/C MODE: RATE-16, TV-450, FI02-30%, PEEP-5, BREATHING IS EVEN AND UNLABORED, NO RESP DISTRESS NOTED. PULSES PALPABLE, NO EDEMA PRESENT. ABD SOFT AND NONDISTENDED, BOWEL TONES ACTIVE X4 QUAD, NO N/V. NGt IN PLACE TO LEFT NARE TO TUBE FEEDING: VITAL AF 1.2 @ 35 ML/HR WITH 50 ML FWF Q6H, GRV-30 ML, REPLACED, HOB ELEVATED. LAMB CATH DRAINING TO GRAVITY, YELLOW URINE NOTED. MILD GENERALIZED WEAKNESS, ON AIR MATTRESS. PT MAY HAVE EPISODES OF RESTLESSNESS, APOLONIA SOFT WRIST RESTRAINTS IN PLACE, SKIN AND CIRCULATION WNL. IV TO LFA AND RFA, PATENT AND INTACT. DROPLET AND CONTACT PRECAUTIONS IN PLACE, PT IS POSITIVE FOR COVID-19. NO ACUTE DISTRESS NOTED. CALL LIGHT WITHIN REACH. WILL CONT TO MONITOR.
--- NOTE | 2019-12-26 20:47 | NUR ---
SPOKE WITH DR HORNE REGARDING 1700 DOSE OF SODIUM CHLORIDE NOT GIVEN, PER PHYSICIAN, OKAY IF NOT GIVEN, DOSE WILL CONTINUE TOMORROW. NO NEW ORDERS AT THIS TIME.
[2019-12-27] VITALS (19 sets, daily range): BP systolic 103–140; BP diastolic 48–90
[2019-12-27 05:40] LABS: BASOPHIL % 0.3 % (0-2); RED CELL DISTRIBUTION WIDTH 12.7 % (11.5-14.5)
[2019-12-27 05:48] LABS: PLATELET COUNT 444 x10^3mcL (130-400)
[2019-12-27 05:58] LABS: CALCIUM 8.3 mg/dL (8.5-10.1); CARBON DIOXIDE 28.6 mmol/L (21-32); CHLORIDE SERUM 99 mmol/L (98-107); CREATININE SERUM 0.7 mg/dL (0.7-1.3); GFR1 > 60 mL/min; GLUCOSE SERUM 117 mg/dL (74-106); MAGNESIUM 2.2 mg/dL (1.8-2.4); POTASSIUM SERUM 3.8 mmol/L (3.5-5.1); SODIUM SERUM 134 mmol/L (136-145)
--- NOTE | 2019-12-27 06:39 | NUR ---
PT SLEPT WELL THROUGHOUT THE EVENING. BREATHING IS EVEN AND UNLABORED, ETT TO VENT: VCV-AC MODE, RATE-16, TV-450, PEEP-5, FI02-30%, NO RESP DISTRESS NOTED. FENTANYL INFUSING WELL @ 2 MCG/KG/HR AND VERSED @ 7 MG/HR TO LFA AND RFA IV SITES. NGt IN PLACE TO LEFT NARE TO TUBE FEEDING W/ GRV-10 ML, REPLACED, HOB ELEVATED. PT CLEANED AND REPOSITIONED. NO ACUTE CHANGES ENCOUNTERED DURING SHIFT. ALL NEEDS MET AND ANTICIPATED. DROPLET PRECAUTIONS MAINTAINED. CALL LIGHT WITHIN REACH. WILL ENDORSE CARE TO AM NURSE.
--- NOTE | 2019-12-27 08:00 | NUR ---
PATIENT WAS ON VENT AND SEDATED WITH FENTANYL AT 2MCG/KG/HR AND VERSED AT 7MG/HR. PATIENT RESPONSIVE TO TACTILE STIMULI AND FOLLOWED A COUPLE OF SIMPLE COMMANDS. APOLONIA PUPILS WITH SLUGGISH REACTION TO LIGHT. NGT SECURED TO LEFT NARE AND PLACEMENT VERIFIED WITH SOME AIR BOLUS. ETT 7.5 SECURED AT 25CM AT LIPLINE. ETT TO VENT VIA VCV/AC MODE: FIO2 30%, VT 450, RATE 16, PEEP 5. TELE # 6 SHOWED SINUS RHYTHMS. NGT TO TUBE FEEDING WITH VITAL AF AT 35ML/HR AND FLUSHED WITH WATER 50ML Q6HR. NO RESIDUAL AT THIS TIME. LAMB CATH TO GRAVITY DRAINING YELLOW URINE. IV SITES TO RFA AND LFA. SOFT WRIST RESTRAINTS TO BOTH WRISTS PREVENT PATIENT FROM PULLING AT TUBE/LINE AND WILL BE RELEASED FOR ROM Q2HR/PRN. CALL LIGHT WITHIN REACH. SIDE RAILS UP X3. BED IS AT LOWEST POSITION. HEAD OF BED ELEVATED. DROPLET ISOLATION MAINTAINED.
--- NOTE | 2019-12-27 12:17 | NUR ---
RT WHITE PLACED PATIENT ON CPAP WITH FIO2 30%, PEEP 5 AND PSV 12.
--- NOTE | 2019-12-27 13:02 | NUR ---
FENTANYL TITRATED FROM 2MCG/KG/HR AND VERSED TITRATED FROM 7MG/HR DOWN TO 5MG/HR WHEN PATIENT CALM DOWN.
--- NOTE | 2019-12-27 13:40 | NUR ---
THE PATIENT'S , CINDY FRIAS CALLED FOR UPDATE. PATIENT'S STATUS WAS INFORMED TO CINDY. CONCERNS ADDRESSED.
--- NOTE | 2019-12-27 15:36 | NUR ---
Follow-up Nutrition Assessment: ICU6 MILAGROS FRIAS Dx: Sycope, influenza B, dehydration PMHx: HTN Labs: (12/26) Na 134L, Glu 117H, Ca 8.3L, H/H 12.8/38L Meds: Aldactone, Dulcolax, Lactinex, Lasix, Neutra-phos, Norvasc, Pepcid, Sodium chloride, sublimaze PRN meds: Robitussin, Tessalon, Tylenol, versed Diet: TF-Vital 1.2 at 35ml/hr via NG tube. This will provide a volume of 840ml, 1008kcal, 63g protein, 881ml free water (including fwf 200ml). PO Intake: Pt on tube feed Tube feed intake: (12/25)780ml, (12/24)1260ml, (12/23)608ml Weights: (12/24) 74kg Edema: none noted Last BM: none noted Skin: intact Jagjit: 15 I/Os: (12/26)395/2300ml = -1905ml, (12/25) 2118/3500ml = -1382ml, (12/24) 2680/2700ml = -20ml Per last RD note (12/24), Vital AF 1.2 at 60ml/hr was recommended. RD Note (12/26): Per RN reassessment note (12/26) pt was tolerating tube feed with no residual noted. Per progress note (12/26), pt is intubated and sedated. Patient dilated bowel improving. Pt currently sedated with Fentanyl and versed. CPAP trails failed yesterday and will attempt today. Pt was seen lying in bed and tube feeding running at 35ml/hr. No residual noted per RN. RN reported that pt had not had a BM for a while, suppository would be given to pt later today. Estimated Nutritional Needs Based on current body weight (74 kg) Energy:9179-8349 vs. 1678 kcal/day (25-30 kcal/kg vs [id number] for ventilator dependence) Protein: 111-148 g/day (1-1.4g/kg for geriatric maintenance, ARDS, viral PNA) Fluid: 5500-2680 mL/day (1 mL/kcal) or per MD Nutrition Diagnosis: (ongoing) 1. Inadequate intake of enteral nutrition r/t intake of TF not meeting needs a/e/b current rate of 35ml/hr provides 54% of kcal needs. Intervention: 1. Recommend Glucerna at 60ml/hr. This will provide a volume of 1440ml. 1728kcal, 86.4g protein, 1159ml free fluid meeting 93% of the estimated energy needs (100% PSU), and 78% of the estimated protein needs. 2. Recommend ProSource BID for additional 30g protein and 120kcal. 3. Recommend fwf 120ml Q4H to provide additional 720ml fluid or per MD. Paged DIRECT CARE PROFESSIONAL Michael. Waiting for response. Monitor/Evaluate: Goal: Have pt meet at least 75% of estimated needs via nutrition support (not met, ongoing goal) Monitor: Nutrition support tolerance, Labs, GI function, Body weight F/U in 2-3 days as high risk 12/28-
--- NOTE | 2019-12-27 16:41 | NUR ---
DR. PINK WAS AT BEDSIDE SEEING THE PATIENT. UPDATE PROVIDED TO THE DOCTOR. PER DR. PINK, PATIENT IS NOT READY TO BE EXTUBATED. START CPAP TOMORROW AGAIN AT 0800 TO SEE IF THE PATIENT TOLERATES WELL WITH CPAP TRIAL BEFORE FUTHER WEANING TRIAL PROCESS IS IMPLEMENTED.
--- NOTE | 2019-12-27 17:45 | NUR ---
RT WHITE PLACED PATIENT BACK ON VCV/AC MODE: FIO2 30%, RATE 16, VT 450, AND PEEP 5.
--- NOTE | 2019-12-27 18:34 | NUR ---
PATIENT WAS GIVEN A BATH AND CHANGED. LAMB CARE PROVIDED TO THE PATIENT. DROPLET ISOLATION MAINTAINED THROUGHOUT THE SHIFT DUE TO POSITIVE COVID 19 RESULT.
--- NOTE | 2019-12-27 19:06 | NUR ---
REPORT GIVEN TO ANATOLY BOX RN.
--- NOTE | 2019-12-27 20:00 | NUR ---
RECEIVED REPORT FROM AM RN. PT IS ALERT AND INTUBATED. SEDATED ON FENTANYL 1.75 MCG/KG/HR, AND VERSED 5 MG/HR. RESPONSIVE TO TACTILE STIMULUS. 7.5 ETT AT 25 CM WITH L NGT PATENT AND INTACT. PT IS BREATHING E.U ON VENT. SETTINGS INCLUDE RATE 16, TV: 450, O2: 30%, PEEP: 5. LUNG SOUNDS COURSE, AND DIMINISHED TO BASES. S1 S2 HEART SOUNDS AUSCULTATED. PULSES PALPABLE X4. SKIN IS WARM AND CONSISTENT WITH ETHNICITY. CAP REFILL <3 SECS X4. SKIN INTACT. ABD IS SOFT AND ROUNDED WITH ACTIVE BOWEL SOUNDS X4Q. PT HAS VITAL AF INFUSING AT 35 ML/HR. LFA AND RFA PERIPHERAL IV PATENT, DRESSING CDI. LAMB DRAINING VIA GRAVITY. URINE IS YELLOW WITH FAIR OUTPUT. NO EDEMA NOTED. ALL QUESTIONS AND CONCERNS ANSWERED. WILL CONTINUE TO MONITOR.
--- NOTE | 2019-12-27 22:00 | NUR ---
DR. GO AT BEDSIDE. ALL QUESTIONS AND CONCERNS ANSWERED.
--- NOTE | 2019-12-27 23:58 | NUR ---
TITRATED FENTANYL FROM 1.75 MCG/KG/HR TO 2 MCG/KG/HR DUE TO INCREASED AGITATION AND DESATURATION TO 88%.
[2019-12-28] VITALS (13 sets, daily range): BP systolic 108–127; BP diastolic 68–88
--- NOTE | 2019-12-28 04:00 | NUR ---
PT WENT INTO COUGHING FIT, EVEN WITH MAX ENOUGH SEDATION, WITHOUT JEAPORDIZING BP. PT CONTINUED TO DESAT, EVEN AFTER SUCTIONING. IT APPEARED THOUGH TUBE FEED WAS SOMEHOW GETTING INTO ETT TUBE, TUBE FEED WAS STOPPED. PAGED THE PHYSICIAN. PHYSICIAN DC FENTANYL, AND ADDED ON PROPOFOL. AWAITING ORDER TO BE PLACED BY PHYSICIAN.
[2019-12-28 05:41] LABS: CARBON DIOXIDE 29.5 mmol/L (21-32); CHLORIDE SERUM 99 mmol/L (98-107); CREATININE SERUM 0.7 mg/dL (0.7-1.3); GFR1 > 60 mL/min; GLUCOSE SERUM 123 mg/dL (74-106); MAGNESIUM 2.2 mg/dL (1.8-2.4); POTASSIUM SERUM 4.2 mmol/L (3.5-5.1); SODIUM SERUM 135 mmol/L (136-145)
[2019-12-28 05:54] LABS: BASOPHIL % 0.1 % (0-2); RED CELL DISTRIBUTION WIDTH 12.6 % (11.5-14.5)
[2019-12-28 05:58] LABS: PLATELET COUNT 489 x10^3mcL (130-400)
--- NOTE | 2019-12-28 07:24 | NUR ---
REPORT GIVEN TO MAX TALBERT. ALL QUESTIONS AND CONCERNS ANSWERED.
--- NOTE | 2019-12-28 07:45 | NUR ---
PATIENT REMAINS ON VENT AND SEDATED WITH VERSED AT 5MG/HR; FENTANYL WAS DISCONTINUED AND PROPOFOL INITIATED AT 10MCG/KG/MIN. PATIENT RESPONSIVE TO TACTILE STIMULI BUT VERY RESTLESS AND DID NOT FOLLOW COMMANDS. NGT SECURED TO LEFT NARE; PLACEMENT VERIFIED WITH SOME AIR BOLUS. NO RESIDUAL NOTED AT THIS TIME. TUBE FEEDING WITH VITAL AF AT 35ML/HR AND FREE WATER FLUSH AT 50ML/Q6HR. TUBE FEEDING WAS TEMPORARILY ON HOLD BECAUSE PATIENT'S SO RESTLESS (RISK OF ASPIRATION). ETT 7.5 SECURED AT 25CM AT LIPLINE. ETT TO VENT VIA VCV/AC MODE: FIO2 30%, RATE 16, VT 450, PEEP 5. PATIENT HAD EPISODES OF DESAT WITH O2 SAT<94%. TELE # 6 SHOWS SINUS RHYTHMS WITH EPISODES OF SINUS TACHYCARDIA. IV SITES TO RFA AND LFA. LAMB CATH TO GRAVITY DRAINING YELLOW URINE. SOFT WRIST RESTRAINTS TO BOTH WRISTS TO PREVENT PATIENT FROM PULLING AT TUBE/LINE AND WILL BE RELEASED FOR ROM Q2HR. HEAD OF BED ELEVATED. PRESSURE POINTS OFFLOADED. BED AT LOWEST POSITION. CALL LIGHT WITHIN REACH. DROPLET ISOLATION MAINTAINED.
--- NOTE | 2019-12-28 08:45 | NUR ---
DR. PINK WAS AT BEDSIDE EXAMING THE PATIENT. UPDATE PROVIDED TO THE DOCTOR. DR. PINK AGREED TO KEEP SEDATION TO HELP THE PATIENT REST AND POSTPONE CPAP TRIAL ORDERED THIS MORNING.
--- NOTE | 2019-12-28 09:15 | NUR ---
TUBE FEEDING WITH VITAL AF RESUMED AT 35ML/HR AND FREE WATER FLUSH AT 50ML/Q6HR.
--- NOTE | 2019-12-28 09:29 | NUR ---
PATIENT REMAINS RESTLESS WITH RR>30S, HR>110S ; SO FAR PROPOFOL AT 15MCG/KG/MIN AND VERSED AT 8MG/HR TO COMFORT THE PATIENT.
--- NOTE | 2019-12-28 09:40 | NUR ---
PATIENT IS STILL RESTLESS WITH RR>30; PROPOFOL TITRATED FROM 15MCG/KG/MIN UP TO 20MCG/KG/MIN.
--- NOTE | 2019-12-28 15:08 | NUR ---
DR. RO IS IN TO SEE THE PATIENT. UPDATE PROVIDED TO THE DOCTOR.
--- NOTE | 2019-12-28 18:04 | NUR ---
PATIENT WAS GIVEN A PARTIAL BATH AND LAMB CARE PROVIDED TO THE PATIENT. PATIENT REMAINS ON VENT VIA VCV/AC MODE: FIO2 30%, RATE 16, VT 450, AND PEEP 5.
--- NOTE | 2019-12-28 19:07 | NUR ---
RECEIVED REPORT FROM ISABEL SANTANA. WILL RESUME CARE.
--- NOTE | 2019-12-28 19:25 | NUR ---
RECEIVED PT INTUBATED AND SEDATED ON PROPOFOL AT 20MCG/KG/MIN AND VERSED AT 8MG/HR. PT RESPONSIVE TO TACTILE STIMULI. PUPILS 2MM SLUGGISH. 7.5 ETT AT 25CM LL INTACT AND SECURED. L NGT INTACT AND SECURED. NO REDNESS, SWELLING, OR DRAINAGE NOTED TO EENT. ON VENT VCV-AC MODE WITH SETTINGS OF VT 450, FIO2 30%, R 16, PEEP 5. LUNG SOUNDS DIMINSIHED BILATERALLY. BREATHING E/U. S1S2 AUSCULTATED. NO S/SX OF CHEST PAIN AT THIS TIME. CAP REFILL <3 SEC. NO EDEMA NOTED. PULSES PALPABLE. GENERALIZED WEAKNESS. JOINTS INTACT. BILATERAL SOFT WRIST RESTRAINTS IN PLACE FOR PT'S SAFETY. ON TF OF VITAL AF AT 35CC/HR AND FWF OF 50CC Q6HRS WITH NO RESIDUAL NOTED. PLACEMENT CHECKED. PT TOLERATING FEEDING WELL. ABDOMEN SOFT, NONTENDER. NO N/V. NO BM AT THIS TIME. LAMB CATHETER IN PLACE DRAINING VIA GRAVITY YELLOW URINE. BED IN LOW POSITION. CALL LIGHT WITHIN REACH.
[2019-12-29] VITALS (16 sets, daily range): BP systolic 95–123; BP diastolic 66–95
--- NOTE | 2019-12-29 04:50 | NUR ---
INSURANCE RISK ANALYST AT BEDSIDE FOR BLOOD DRAW.
[2019-12-29 05:12] LABS: BASOPHIL % 0.3 % (0-2); RED CELL DISTRIBUTION WIDTH 12.7 % (11.5-14.5)
[2019-12-29 05:18] LABS: PLATELET COUNT 477 x10^3mcL (130-400)
[2019-12-29 05:24] LABS: CARBON DIOXIDE 29.7 mmol/L (21-32); CHLORIDE SERUM 99 mmol/L (98-107); CREATININE SERUM 0.7 mg/dL (0.7-1.3); GFR1 > 60 mL/min; GLUCOSE SERUM 139 mg/dL (74-106); POTASSIUM SERUM 4.7 mmol/L (3.5-5.1); SODIUM SERUM 135 mmol/L (136-145)
--- NOTE | 2019-12-29 05:30 | NUR ---
PT CLEANED. ALL LINENS AND GOWN CHANGED. LAMB CATHETER CARE PROVIDED. 950CC OF URINE OUTPUT NOTED. PT HAD LARGE SOFT BM DURING SHIFT.
--- NOTE | 2019-12-29 08:25 | NUR ---
INCREASED PROPOFOL TO 30MCGS/KG/MIN
--- NOTE | 2019-12-29 11:33 | NUR ---
PRECEDEX DRIP STARTED AT 0.2 MCG/KG/HR AT THIS TIME. WILL START TO TITRATED VERSED AND DIPRIVAN DRIP DOWN TOLERATED. RSS-1. PATIENT MOVING HIS LEGS AND COUGHING. MAX GROVES MADE AWARE. WILL CONTINUE TO MONITOR.
--- NOTE | 2019-12-29 12:21 | NUR ---
VERSED DRIP TITRATED DOWN TO 5 MG/HR. DIPRIVAN DRIP TITRATED DOWN TO 20 MCG/KG/MIN. PRECEDEX REMAINS AT 0.2 MCG/KG/HR. RSS-4. WILL CONTINUE TO MONITOR.
--- NOTE | 2019-12-29 13:46 | NUR ---
VERSED TURNED DOWN TO 3MG/HR
--- NOTE | 2019-12-29 14:19 | NUR ---
RSS-1. PATIENT IS COUGHING. PRECEDEX DRIP TITRATED UP TO 0.4 MCG/KG/HR. YANELI, PRIMARY RN AT BEDSIDE TO SUCTION. WILL CONTINUE TO MONITOR.
--- NOTE | 2019-12-29 15:23 | NUR ---
1. Recommend Pivot at 45ml/hr. This will provide a volume of 1080ml, 1620kcal, 101.3g protein and 819ml free water flush. Along with kcal provided from Propofol, it will meet 100% of the estimated energy needs (100% [id number]), and 91% of the estimated protein needs. 2. Recommend 170ml free water flush or per MD.
--- NOTE | 2019-12-29 15:23 | NUR ---
Follow-up Nutrition Assessment: ICU6 MILAGROS FRIAS 64M HR FU Dx: Sycope, influenza B, dehydration PMHx: HTN Labs: (12/28) Na 135L, Glu 139H, H/H 12.9/38L Meds: Aldactone, Diprivan, Dulcolax, lactinex, Lasix, Norvasc, Pepcid, Reglan, Sodium chloride, Sublimaze, Versed PRN meds: Robitussin, Tessalon perles, Tylenol, Ventolin Diet: Vital 1.2 at 35ml/hr fwf [id number]. This will provide a volume of 840ml, 1008kcal, 63g protein, 881ml free water (including fwf 200ml). PO Intake: NPO Tube feeding intake: (12/28)660ml, (12/27)1143ml, (12/26)0ml, (12/25)780ml, (12/24)1260ml, (12/23)608ml Weights: (12/28) 70kg, (12/26) 74kg *4kg weight loss Edema: No edema noted Last BM: 12/27 Skin: skin intact Jagjit: 15 I/Os: (12/28)1636/1950ml = -314ml, (12/27) 2450/3200ml = -650ml, (12/26)395/2300ml = -1905ml Per last RD note (12/26), pt was tolerating tube feeding with no residual noted. Pt dilated bowel improving and sedated with fentanyl and versed. CPAP trial failed the day before. Pt's tube feed was running at 35 ml/hr at the time of visit. Recommendation was not implemented. RD Note (12/28): Per RN reassessment (12/28), pt is sedated with Propofol at 20 mcg/kg/min (approximately 222kcal). Pt is tolerating tube feed at 35ml/hr with 20cc residuals. During visit, pt was lying in bed and Propofol was running at 30mcg/kg/min (approximately 332kcal). Per RN, tube feed was running at 35ml/hr and there were no residuals today. Additionally, RN also reported that pt had one BM yesterday. Estimated Nutritional Needs Based on current body weight (74 kg) Energy:0065-6499 vs. 1678 kcal/day (25-30 kcal/kg vs [id number] for ventilator dependence) Protein: 111-148g/day (1.5-2 /kg for ventilator dependence) Fluid: 0374-7453 mL/day (1 mL/kcal) or per MD Nutrition Diagnosis: (ongoing) 1. Inadequate intake of enteral nutrition r/t intake of TF not meeting needs a/e/b current rate of 35ml/hr provides 54% of kcal needs. Intervention: 1. Recommend Pivot at 45ml/hr. This will provide a volume of 1080ml, 1620kcal, 101.3g protein and 819ml free water flush. Along with kcal provided from Propofol, it will meet 100% of the estimated energy needs (100% [id number]), and 91% of the estimated protein needs. 2. Recommend 170ml free water flush or per MD. Provided recommendation to BANKRUPTCY ATTORNEY. BANKRUPTCY ATTORNEY talked to RETAIL PRODUCT DEMO SPECIALIST Dee Dee, and RETAIL PRODUCT DEMO SPECIALIST Dee Dee acknowledged. Monitor/Evaluate: Goal: Have pt meet at least 75% of estimated needs via nutrition support (not met, on going goal) Monitor: Nutrition support tolerance, Labs, GI function, Body weight F/U in 2-3 days as risk 12/30-
--- NOTE | 2019-12-29 17:35 | NUR ---
RSS-1. PATIENT IS COUGHING AND GRABBING BED SIDE RAILS. VERSED DRIP TITRATED UP TO 7 MG/HR AND PRECEDEX REMAINS AT 0.7 MCG/KG/HR. DIPRIVAN DRIP TITRATED OFF. WILL CONTINUE TO MONITOR.
--- NOTE | 2019-12-29 17:46 | NUR ---
RSS-4. VERSED DRIP TITRATED DOWN TO 5 MG/HR. MORPHINE DRIP ORDERED FOR PAIN BY DEJAH BRASHER. WILL CONTINUE TO MONITOR.
--- NOTE | 2019-12-29 18:18 | NUR ---
PATIENT IS BRADYCARDIC WITH HR 57 BPM. PRECEDEX DRIP TITRATED DOWN TO 0.5 MCG/KG/HR. MORPHINE DRIP ALSO STARTED AT 1 MG/HR. RSS-4. VERSED DRIP REMAINS AT 5 MG/HR. WILL CONTINUE TO MONITOR.
--- NOTE | 2019-12-29 20:00 | NUR ---
RECEIVED PT FROM PREVIOUS SHIFT NURSE. PT INTUBATED/SEDATED ON VERSED GTT @ 5MG/H, PRECEDEX GTT @ 0.5 MCG/KG/H, MORPHINE GTT@ 1MG/H. ETT ATTATCHED TO VENT. VCV-AC MODE: VT 450, RATE 16, FIO2 30%, PEEP 5. L. NG TUBE INTACT. SYMMETRICAL CHEST EXPANSION NOTED. LFA/RFA IVS INTACT AND PATENT. LAMB DRAINING VIA GRAVITY YELLOW OUTPUT NOTED. TF INFUSING AT 35ML/H, RESIDUAL LESS THAN 5ML, REPLACED. B/L SOFT BUE RESTRAINTS. CONNECTED TO FULL CM. BED IN LOWEST POSITION. CALL LIGHT WITHIN REACH. SEE NURSE SHIFT ASSESSMENT FOR FURTHER DETAILS.
[2019-12-30] VITALS (20 sets, daily range): BP systolic 90–157; BP diastolic 55–86
--- NOTE | 2019-12-30 00:33 | NUR ---
PT'S HR IN THE LOW 50'S. CURRENT NIBP 86/56 MAP 64. MORPHINE GTT TITRATED TO 0.5 MG/HR.
--- NOTE | 2019-12-30 00:33 | NUR ---
PT'S HR IN THE LOW 50'S. CURRENT NIBP 86/56 MAP 64. VERSED GTT TITRATED TO 4 MG/HR.
--- NOTE | 2019-12-30 03:30 | NUR ---
TF INCREASED TO 45ML/H. 50ML FWF Q6H. NO S/S N/V NOTED. NO RESIDUAL NOTED. WILL CONTINUE TO MONITOR.
[2019-12-30 05:08] LABS: BASOPHIL % 0.1 % (0-2); RED CELL DISTRIBUTION WIDTH 12.9 % (11.5-14.5)
[2019-12-30 05:16] LABS: PLATELET COUNT 478 x10^3mcL (130-400)
[2019-12-30 05:19] LABS: CALCIUM 8.8 mg/dL (8.5-10.1); CARBON DIOXIDE 28.1 mmol/L (21-32); CHLORIDE SERUM 102 mmol/L (98-107); CREATININE SERUM 0.7 mg/dL (0.7-1.3); GFR1 > 60 mL/min; GLUCOSE SERUM 140 mg/dL (74-106); POTASSIUM SERUM 4.2 mmol/L (3.5-5.1); SODIUM SERUM 138 mmol/L (136-145)
--- NOTE | 2019-12-30 06:04 | NUR ---
BED BATH GIVEN. LAMB CARE PROVIDED. LINENS CHANGED. PT TOLERATED WELL. WILL CONTINUE TO MONITOR.
--- NOTE | 2019-12-30 06:14 | NUR ---
PT RESTLESS, RSS=1. VERSED GTT TITRATED TO 5 MG/HR
--- NOTE | 2019-12-30 07:26 | NUR ---
REPORT GIVEN TO ONCOMING SHIFT NURSE.
--- NOTE | 2019-12-30 07:45 | NUR ---
MORPHINE INFUSING 1 MG HOUR,VERSED DECREASED TO 1 MG Q 1 HOUR, PRECEDEX INCREASED TO 0.7 MCG PER KG Q 1 HOUR. PROPOFOL OFF. RT IN TO SEE PT, DR. PINK HERE TO SEE PT. PT PLACED ON CPAP 04/26.
--- NOTE | 2019-12-30 07:50 | NUR ---
PT DID NOT TOLERATE C PAP WELL AND RT PLACED BACK ON VENT SETTING ASSIST CONTROL.
--- NOTE | 2019-12-30 08:00 | NUR ---
SEDATED WITH EYES CLOSED. NGT TO LEFT NARE RECEIVING PIVOT GT FEEDING. TOLERATING WELL.INTUBATED. RT PROTOCOL, RALES BILAT. REQUIRES FREQUENT SUCTIONING. BEIGE SECRETIONS. EYES CLOSED. MOVES LOWER EXTS. SQUEEZES HAND ON COMMAND. RECEIVING MORPHINE 1 MG IV Q 1 HOUR. VERSED AND PERCEKA DRIPS ADJUSTED PRN. BILAT SOFT WRIST RESTRAINTS TO PREVENT PULLING OUT TUBINGS. BED IN LOW POSITION, HOB ELEVATED SLIGHTLY. LAMB DRAINING YELLOW CLEAR URINE. REPOSITIONSED WITH PILLOWS. ALL ISOLATION PRECAUTIONS TAKEN.
--- NOTE | 2019-12-30 12:00 | NUR ---
RESTING QUIETLY. CONTINUES ON VENTILATOR. SEEN BY RT. LUNG SOUNDS DIMINISHED, NO RALES HEARD. DOES NOT RESPOND TO COMMAND. EYES CLOSED. ATTEMPTED TO INFORM PT HIS SIMON CALLED TO SEE HOW HE WAS DOING TODAY. NO RESPONSE. LAMB CARE PROVIDED, TURNED AND REPOSITIONED WITH PILLOWS. CONTINUES ON DROPLET ISOLATION FOR COVID 19. BILAT WRIST RESTRAINTS. REMOVED TO PROVIDE RANGE OF ARM MOVEMENTS.
--- NOTE | 2019-12-30 15:45 | NUR ---
RESTING QUIETLY. DOES NOT APPEAR TO BE IN ANY DISTRESS. MORPHINE DRIP INCREASED TO 2 MG Q 1 HOUR. VERSED DECREASED TO 3 MG Q 1 HOUR.
--- NOTE | 2019-12-30 16:00 | NUR ---
RESTING QUIETLY. SEEN BY RT. REPOSITIONED LAMB CARE PROVIDED. SUCTIONED BEIGE SECRETIONS.
--- NOTE | 2019-12-30 18:19 | NUR ---
REMAINS SEDATED ON VENT. REQUIRES SUCTIONING SMALL AMT BEIGE SECRETIONS. ON VERDED 3 MG, PRECEDEX 0.7 MCG/K/H. MORPHINE 2 MG Q 1 HOUR. RT PROTOCOL. TOTAL CARE. TURNED AND REPOSITIONED Q 2 HOURS. GT FEED 45 CC Q 1 HOUR, H20 FLUSH 50 CC Q 6 HOURS. VSS. AFEBRILE.
--- NOTE | 2019-12-30 19:20 | NUR ---
RECEIVED CHANGE OF SHIFT REPORT FROM PRISCILA SANTANA. PT IS INTUBATED AND SEDATED ON VERSED 3MG/HR AND MORPHINE 2MG/HR AND PRECEDEX AT 0.7MCG/KG/HR. PT RESPONDS TO TACTILE STIMULI. RSS OF 4. SKIN INTACT. PT HAS LEFT NGT INTACT AND INFUSING PIVOT 1.5 AT 45ML/HR WITH 50ML FWF Q6HR. PERIPHERAL IV TO LFA AND RFA INTACT, PATENT ,DRESSING CDI. PT HAS LAMB CATHETER DRAINING VIA GRAVITY. URINE IS DYLAN CLEAR. PT ON BILATERAL SOFT WRIST RESTRINTS. PT INTUBATED WITH AC MODE. LABORED BREATHING NOTED. PT ON CONTINOUS CARDIAC AND PULSE OX MONITOR. WILL CONTINUE TO MONITOR.
[2019-12-31] VITALS (16 sets, daily range): BP systolic 92–136; BP diastolic 54–88
--- NOTE | 2019-12-31 00:14 | NUR ---
HR OF 58. TITRATED MORPHINE TO 1MG/HR. WILL CONTINUE TO MONITOR.
--- NOTE | 2019-12-31 00:55 | NUR ---
PT REMAINS RESTLESS AND AGITATED. RSS OF 3. TITRATED MORPHINE BACK UP TO 2MG/HR. HR: 105 WILL CONTINUE TO MONITOR.
--- NOTE | 2019-12-31 01:30 | NUR ---
RSS OF 3. PT RESTLESS AND AGITATED. TITRATED VERSED TO 4MG/HR. WILL CONTINUE TO MONITOR.
--- NOTE | 2019-12-31 02:30 | NUR ---
RSS OF 3. PT REMAINS RESTLESS AND AGITATED. TITRATED VERSED TO 5MG/HR. WILL CONTINUE TO MONITOR.
--- NOTE | 2019-12-31 03:30 | NUR ---
RSS OF 3. TITRATED VERSED TO 6MG/HR. WILL CONTINUE TO MONITOR.
--- NOTE | 2019-12-31 04:00 | NUR ---
RSS OF 3. PT RESTLESS AND AGITATED. TITRATED VERSED TO 7MG/HR.
--- NOTE | 2019-12-31 04:30 | NUR ---
RSS OF 3. PT REMAINS RESTLESS AND AGITATED. TITRATED VERSED TO 8MG/HR
--- NOTE | 2019-12-31 05:17 | NUR ---
PULLER OVER AT BEDSIDE DRAWING BLOOD.
[2019-12-31 05:49] LABS: RED CELL DISTRIBUTION WIDTH 12.7 % (11.5-14.5)
[2019-12-31 05:56] LABS: CALCIUM 8.5 mg/dL (8.5-10.1); CHLORIDE SERUM 106 mmol/L (98-107); CREATININE SERUM 0.8 mg/dL (0.7-1.3); GFR1 > 60 mL/min; GLUCOSE SERUM 104 mg/dL (74-106); MAGNESIUM 2.2 mg/dL (1.8-2.4); PHOSPHOROUS 3.8 mg/dL (2.5-4.9); POTASSIUM SERUM 3.8 mmol/L (3.5-5.1); SODIUM SERUM 141 mmol/L (136-145)
[2019-12-31 06:07] LABS: BASOPHIL % 0 % (0-2); PLATELET COUNT 427 x10^3mcL (130-400)
--- NOTE | 2019-12-31 06:36 | NUR ---
PT RESTING WELL. NO S/SX OF DISTRESS. WILL CONTINUE TO MONITOR.
--- NOTE | 2019-12-31 07:06 | NUR ---
CHANGE OF SHIFT REPORT GIVEN TO GALI SANTANA. QUETIONS ANSWERED. ENDORSED CARE
--- NOTE | 2019-12-31 07:30 | NUR ---
PATIENT'S ON VENT AND SEDATION WITH PRECEDEX AT 0.7MCG/KG/HR, VERSED AT 8MG/HR AND MORPHINE 2MG/HR. PATIENT RESPONSIVE TO TACTILE STIMULI BUT RESTLESS, MOVING, COUGHING AND DID NOT FOLLOW COMMANDS. NGT SECURED AT LEFT NARE; PLACEMENT VERIFIED WITH SOME AIR BOLUS. NGT FEEDING WITH PIVOT AT 45ML/HR AND FREE WATER FLUSH 50ML/Q6HR. NO RESIDUAL AT THIS TIME. ETT 7.5 SECURED AT 25CM AT LIPLINE. ETT TO VENT VIA VCV/AC MODE: FIO2 30%,RATE 16, VT 450, PEEP 5. TELE # 6 SHOWED NORMAL SINUS RHYTHMS. IV SITES TO RFA AND LFA PATENT AND INTACT. LAMB CATH TO GRAVITY DRAINING YELLOW URINE. SOFT WRIST RESTRAINTS TO BOTH WRISTS TO PREVENT PATIENT FROM PULLING AT TUBE/LINE AND WILL BE RELEASED FOR ROM Q2HR/PRN. HEAD OF BED ELEVATED. VAP CARE PROVIDED TO THE PATIENT. PRESSURE POINTS OFFLOADED. SIDE RAILS UP X3. CALL LIGHT WITHIN REACH. BED AT LOWEST POSITION. DROPLET ISOLATION DUE TO POSITIVE COVID 19 RESULT.
--- NOTE | 2019-12-31 08:15 | NUR ---
DR. PINK WAS AT BEDSIDE EXAMING THE PATIENT. UPDATE PROVIDED TO THE DOCTOR.
--- NOTE | 2019-12-31 08:30 | NUR ---
VERSED TITRATED FROM 8MG/HR DOWN TO 5MG/HR TO REACH RSS GOAL OF 4.
--- NOTE | 2019-12-31 08:32 | NUR ---
DR PINK BEDSIDE TO ASSESS PATIENT. UPDATES PROVIDED BY NURSING. DR PINK WILL TELEPHONE PATIENT'S AND PROVIDE PATIENT UPDATE.
--- NOTE | 2019-12-31 08:35 | NUR ---
DEJAH BRASHER WAS AT THE STATION TO SEE THE PATIENT. KEVIN WAS AWARE THAT THE LATEST NA LEVEL 141 AND THE PATIENT HAS BEEN GIVEN NACL 2GM NGT TID. SAMEERA VERBALIZED HOLDING THE MEDS TODAY.
--- NOTE | 2019-12-31 09:00 | NUR ---
MORPHINE TITRATED FROM 2MG/HR DOWN TO 1MG/HR.
--- NOTE | 2019-12-31 11:26 | NUR ---
VERSED TITRATED FROM 5MG/HR DOWN TO 3MG/HR. TO REACH THE GOAL OF RSS 4.
--- NOTE | 2019-12-31 12:45 | NUR ---
RUI PLACED THE PATIENT ON CPAP WITH PEEP 5 AND PSV 8.
--- NOTE | 2019-12-31 13:12 | NUR ---
THE PATIENT WAS RESTLESS; MOVING AROUND IN BED AND SITTING UP. PATIENT WAS RESPONSIVE TO TACTILE STIMULI AND FOLLOWED COMMANDS. PATIENT WAS EXPLAINED WHAT WAS GOING ON. HE WAS EXPLAINED TO PRACTICE BREATHING WHILE HE WAS ON CPAP... PATIENT NODDED HIS HEAD UNDERSTANDING, BUT STILL RESTLESS. THE PRIMARY NURSE WAS AT BEDSIDE WITH THE PATIENT, HOLDING HIS HANDS AND EDUCATED AGAIN AND AGAIN WHAT THE PATIENT NEEDED TO DO WHILE ON CPAP.
--- NOTE | 2019-12-31 13:25 | NUR ---
PATIENT WAS SO RESTLESS; SITTING UP, MOVING AROUND IN BED, RR>30S, HR>110S. THE PATIENT WAS PLACED BACK ON VCV/AC MODE WITH FIO2 30%, RATE 16, VT 450, PEEP 5. RT-DONALD WAS MADE AWARE AND AGRRED WITH THAT. ALSO, VERSED TITRATED FROM 3MG/HR UP TO 5MG/HR.
--- NOTE | 2019-12-31 13:45 | NUR ---
DR. RO IS IN TO SEE THE PATIENT. UPDATE PROVIDED TO THE DOCTOR.
--- NOTE | 2019-12-31 16:00 | NUR ---
1. Recommend continue Pivot at 50ml/hr. This will provide a volume of 1200ml, 1800kcal, 112.5g protein and 910.8 ml free water flush. Along with kcal provided from Propofol, it will meet 97% of the estimated energy needs (100% [id number]), and 100% of the estimated protein needs. 2. Recommend continue fwf 50 ml Q6H per MD
--- NOTE | 2019-12-31 16:00 | NUR ---
Follow-up Nutrition Assessment: ICU6 MILAGROS FRIAS 64M HR FU Dx: Sycope, influenza B, dehydration PMHx: HTN Labs: (12/30) BUN 21H, H/H 12.4/37L Meds: Diprivan, Dulcolax, lactinex, Lasix, morphine, Norvasc, Pepcid, precede, Seroquel, sodium chloride, versed PRN meds: Robitussin, Tessalon perles, Tylenol, Ventolin Diet: TF-Pivot at 45ml/hr fwf 50ml Q6H. This will provide a volume of 1080ml, 1620kcal, 101.3g protein and 1019 ml free water flush (including fwf 200ml). Along with kcal provided from Propofol, it will meet 100% of the estimated energy needs (100% [id number]), and 91% of the estimated protein needs. PO Intake: NPO Tube feeding intake: (12/30)920ml, (12/29)880ml, (12/28)660ml, (12/27)1143ml, (12/26)0ml, (12/25)780ml, (12/24)1260ml Weights: (12/30)68.8kg (12/28) 70kg, (12/26) 74kg *weight loss Edema: None noted Last BM: none noted Skin: skin intact Jagjit: 15 I/Os: (12/30)1330/1550ml = -220ml, (12/29)1684/1200ml = 484ml, (12/28)1636/1950ml = -314ml, (12/27) 2450/3200ml = -650ml Per last RD note (12/28), pt was sedated with Propofol at 20 mcg/kg/min (approximately 222kcal). Pt was tolerating tube feed at 35ml/hr with 20 cc residuals. Pivot at 45ml/hr was recommended and implemented. RD Note (12/30): Per reassessment note (12/30), pt remained on vent and sedation with versed, precede, and morphine. Tube feeding is running with pivot at 45ml/hr, and no residuals noted. During visit, pt was seen lying in bed, and tube feeding was running. Pt is on vent, and RN confirmed that there were no residuals today. RN also reported that pt had a BM between 4/8-9 during shift commander, and pt is also on Ducolax. Pt's Propofol was not running at the time of visit. Estimated Nutritional Needs Based on current body weight (74 kg) Energy:4548-0474 vs. 1678 kcal/day (25-30 kcal/kg vs [id number] for ventilator dependence) Protein: 111-148g/day (1.5-2 /kg for ventilator dependence) Fluid: 6415-6386 mL/day (1 mL/kcal) or per MD Nutrition Diagnosis: (Resolved) 1. Inadequate intake of enteral nutrition r/t intake of TF not meeting needs a/e/b current rate of 35ml/hr provides 54% of kcal needs. Intervention: 1. Recommend continue Pivot at 50ml/hr. This will provide a volume of 1200ml, 1800kcal, 112.5g protein and 910.8 ml free water flush. Along with kcal provided from Propofol, it will meet 97% of the estimated energy needs (100% [id number]), and 100% of the estimated protein needs. 2. Recommend continue fwf 50 ml Q6H per MD Paged PSYCHOLOGICAL OPERATIONS SPECIALIST Dee Dee, waiting for response. Monitor/Evaluate: Goal: Have pt meet at least 75% of estimated needs via nutrition support (met, ongoing goal) Monitor: Nutrition support tolerance, Labs, GI function, Body weight F/U in 2-3 days as high risk 01/01-
--- NOTE | 2019-12-31 16:10 | NUR ---
DR. GO WAS IN TO SEE THE PATIENT. UPDATE PROVIDED TO THE DOCTOR.
--- NOTE | 2019-12-31 18:24 | NUR ---
PATIENT REMAINS ON VENT VIA VCV/AC MODE: FIO2 30%, RATE 16, VT 450, PEEP 5. PATIENT IS RESTLESS/AGITATED AT TIMES DURING THE SHIFT. NEW BOTTLE OF PIVOT AND TUBING CHANGED FOR THE PATIENT.
--- NOTE | 2019-12-31 19:05 | NUR ---
RECEIVED REPORT FROM GALI SANTANA. WILL RESUME CARE.
--- NOTE | 2019-12-31 19:18 | NUR ---
REPORT GIVEN TO LEONARD CNA LTC NURSE. WHO WILL ASSUME CARE FOR THIS PATIENT. ALL QUESTIONS AND CONCERNS ADDRESSED.
--- NOTE | 2019-12-31 19:20 | NUR ---
RECEIVED PT INTUBATED AND SEDATED ON VERSED AT 5MG/HR, PRECEDEX AT 0.7MCG/KG/HR, MORPHINE 1MG/HR, RSS 5. PUPILS 4MM SLUGGISH. 7.5 ETT AT 25CM LL INATACT AND SECURED. LNGT INTACT AND SECURED. NO REDNESS, DRAINAGE, OR SWELLING NOTED TO EENT. ON VENT VCV-AC MODE WITH SETTINGS OF VT 450, FIO2 30%, R 16, PEEP 5. LUNG SOUNDS CLEAR TO UPPER LOBES AND DIMINISHED TO BASES. BREATHING E/U. S1S2 AUSCULTATED, NO S/SX OF CHEST PAIN. HR 64. CAP REFILL <3 SEC. TRACE EDEMA TO BLE'S AND BUE'S. PULSES PALPABLE. GENERALIZED WEAKNESS. JOINTS INTACT. BILATERAL SOFT WRIST RESTRAINTS IN PLACE FOR PT'S SAFETY. ON PIVOT AT 45CC/HR WITH FWF 50CC Q6HRS WITH NO RESIDUAL NOTED. PLACEMENT CHECKED. PT TOLERATING TF WELL. ABDOMEN SOFT, NONTENDER. BS ACTIVE X 4. NO N/V. LAMB CATHETER IN PLACE DRAINING VIA GRAVITY YELLOW URINE. SKIN INTACT. BED IN LOW POSITION. CALL LIGHT WITHIN REACH.
[2020-01-01] VITALS (18 sets, daily range): BP systolic 13–140; BP diastolic 53–86
--- NOTE | 2020-01-01 00:09 | NUR ---
TITRATED VERSED TO 4MG/HR TO ACHIEVE RSS 4.
[2020-01-01 05:22] LABS: BASOPHIL % 0.3 % (0-2); PLATELET COUNT 376 x10^3mcL (130-400); RED CELL DISTRIBUTION WIDTH 13.3 % (11.5-14.5)
[2020-01-01 06:18] LABS: CARBON DIOXIDE 32.7 mmol/L (21-32); CHLORIDE SERUM 103 mmol/L (98-107); CREATININE SERUM 0.8 mg/dL (0.7-1.3); GFR1 > 60 mL/min; GLUCOSE SERUM 143 mg/dL (74-106); POTASSIUM SERUM 4.1 mmol/L (3.5-5.1); SODIUM SERUM 139 mmol/L (136-145)
--- NOTE | 2020-01-01 07:30 | NUR ---
RECIEVED REPORT FROM LEONARD SANTANA, WILL RESUME ALL CARES.
--- NOTE | 2020-01-01 07:45 | NUR ---
PT RECIEVED FROM [facility]. PT SEDATION MORPHINE 1MG/HR, VERSED 4MCG/KG/HR, AND 0.7MCG/KG/HR. RSS=4. PT RESPONDS TO TACTILE/VOICE STIMULI. ABLE TO DO SIMPLE COMMANDS WHEN MORE ALERT. PUPILS ARE 2MM, SLUGGISH, BERLLA BILATERALLY. 7.5 ETT INTACT AND SECURED 25CM @LL. LT NARE NGT INTACT AND SECURED. EENT FREE OF DISCHARGE. ETT TO VENT, VCV-AC: 16 RR, 450 TV, 5 PEEP, 30% FIO2. LUNG SOUNDS CLEAR TO BUL, DIMINISHED TO BLL. NSR HR =68, S1 S2 HEART SOUNDS AUSCULATED, PT DOES NOT APPEAR TO HAVE CHEST PAIN. PULSES ARE PALPABLE. CAP REFILL <3S. BILATERAL PIV TO LT & RT FOREARMS PATENT, INTACT, DRESSING CDI. SEDATION ONLY INFUSING AT THIS TIME. HEPARIN SQ PROPHILACTIC. PT HAS GENERALIZED WEAKNESS, ON BILATERAL SOFT WRIST RESTRAINTS. LIMITED ROM TO BUE, CSM WNL SKIN INTACT. JOINTS INTACT, NO CONTRACTIONS NOTED. PIVIOT TUBE FEEDING INFUSING AT 45ML/HR W/ A 50ML Q6HR FWF. TOLERATING WELL GRV=0. ABD SOFT AND SLIGHTLY ROUNDED, BOWEL SOUNDS HYPOACTIVE X4Q. PT HAS NO BM. F/C INTACT & DRAIING VIA GRAVITY, FAIR OUTPUT OF LIGHT DYLAN URINE. NO EDEMA, NO DISCHARGE. SKIN INTACT, WARM & DRY. UNABLE TO FULLY ASSESS MOOD AND BEHAVIOR AT THIS TIME, BECOMES RESTLESS AND AGITATED AT TIMES. FAMILY SUPPORT NOTED. WILL CONTINUE TO MONITOR
--- NOTE | 2020-01-01 08:09 | NUR ---
PATIENT'S BP 80/56, MAP 54. LEVOPHED TITRATED TO 3 MCG/MIN. WILL CONTINUE TO MONITOR CLOSELY.
--- NOTE | 2020-01-01 08:52 | NUR ---
MD RIDER AT BEDSIDE, UPDATES PROVIDED BY NURSING. PER MD WILL INCREASE SEROQUEL.
--- NOTE | 2020-01-01 10:45 | NUR ---
VERSED TITRATED UP TO 5MG/HR TO ACHIEVE RSS=4. PT RESTLESS. WILL CONTINUE TO MONITOR.
--- NOTE | 2020-01-01 11:21 | NUR ---
PATIENT'S SON CLAUDE TELEPHONED UNIT FOR PATIENT UPDATE. UPDATES PROVIDED BY NURSING.
--- NOTE | 2020-01-01 11:33 | NUR ---
PATIENT'S BP 120/65, MAP 79. LEVOPHED TITRATED FROM 5 MCG/MIN TO 3 MCG/MIN. WILL CONTINUE TO MONITOR.
--- NOTE | 2020-01-01 14:05 | NUR ---
PT RESTLESS, VERSED TITRATED UP TO 6MG/HR, WILL CONTINUE TO MONITOR
--- NOTE | 2020-01-01 15:11 | NUR ---
PATIENT'S HR 112, COUGHING AND BUCKING VENT. VERSED TITRATED TO 5 MG/HR AND MORPHINE TITRATED TO 4 MG/HR. LEVOPHED AT 2 MCG/MIN. BP 115/66, MAP 82. WILL CONTINUE TO MONITOR CLOSELY.
--- NOTE | 2020-01-01 15:29 | NUR ---
PRN TYLENOL ADMINISTERED FOR TEMP OF 100.4 F, PT RESTLESS WELL. COOLING MEASURES TAKEN WELL. WILL CONTINUE TO MX.
--- NOTE | 2020-01-01 16:45 | NUR ---
PRN TYLENOL EFFECTIVE, TEMP 98.9 AXILLARY. WILL CONTINUE TO MONITOR.
--- NOTE | 2020-01-01 17:49 | NUR ---
PT'S CINDY CALLED FOR UPDATES. CINDY WAS UPDATED ON PATIENTS STATUS, ALL QUESTIONS ANSWERED.
--- NOTE | 2020-01-01 19:00 | NUR ---
RT WHITE @ BEDSIDE. FIO2 TITRATED 100% PER PT DESATS 70-80'S. O2 SAT NOW 100%. WILL CONT TO MONITOR.
--- NOTE | 2020-01-01 19:15 | NUR ---
REPORT RECIEVED FROM [facility]. NURSING UPDATES. POC DISCUSSED. SEE SHIFT ASSESSMENT FOR ASSESSMENT.
--- NOTE | 2020-01-01 19:19 | NUR ---
REPORT GIVEN TO EMORY SANTANA, ALL QUESTIONS AND CONCERNS ADDRESSED.
--- NOTE | 2020-01-01 21:41 | NUR ---
RT CINDY NOTIFIED FIO2 CHANGED BACK DOWN TO 30% PER PT TOLERATING WELL. O2 SAT 98%. NO S/S OF RESP DISTRESS.
--- NOTE | 2020-01-01 22:16 | NUR ---
TITRATED PRECEDEX FORM 0.7MCG TO 0.5MCG AND VERSED FROM 7MG TO 6MG PER PT TRENDING LOWERING BP AND HR. NO S/S OF PAIN OF DISTRESS. WILL CONT TO MONITOR.
[2020-01-02] VITALS (18 sets, daily range): BP systolic 94–163; BP diastolic 58–94
--- NOTE | 2020-01-02 | NUR ---
NO ACUTE CHANGES. WILL CONT TO MONITOR.
--- NOTE | 2020-01-02 02:00 | NUR ---
NO ACUTE CHANGES. WILL CONT TO MONITOR.
--- NOTE | 2020-01-02 04:00 | NUR ---
NO ACUTE CHANGES. WILL CONT TO MONITOR.
[2020-01-02 05:24] LABS: BASOPHIL % 0.3 % (0-2); PLATELET COUNT 330 x10^3mcL (130-400); RED CELL DISTRIBUTION WIDTH 12.9 % (11.5-14.5)
[2020-01-02 05:30] LABS: CALCIUM 9.4 mg/dL (8.5-10.1); CARBON DIOXIDE 30.6 mmol/L (21-32); CHLORIDE SERUM 106 mmol/L (98-107); CREATININE SERUM 0.8 mg/dL (0.7-1.3); GFR1 > 60 mL/min; GLUCOSE SERUM 144 mg/dL (74-106); SODIUM SERUM 141 mmol/L (136-145)
--- NOTE | 2020-01-02 06:00 | NUR ---
NO ACUTE CHANGES. WILL CONT TO MONITOR.
--- NOTE | 2020-01-02 07:33 | NUR ---
RECEIVED REPORT FROM [facility], WILL RESUME ALL CARES.
--- NOTE | 2020-01-02 07:45 | NUR ---
PT IS INTUBATED AND SEDATED ON MORPHINE 2MG/HR, VERSED 8MG/HR AND PRECEDEX 0.5 MCG/KG/HR. RSS 4. PT RESPONDS TO TACTILE STIMULI, CAN SQUEEZE HANDS BUT UNABLE TO ANSWER YES/NO QUESTIONS. PUPILS PERLLA, 2MM, AND SLUGGISH. 7.5 ETT INTACT & SECURED, 25 CM @LL. LT NARE NGT INTACT AND SECURED WITH PIVOT INFUSING AT 45ML/HR CONTINUOUSLY FOLLOWED BY A Q6HR 50ML WATER FLUSH. EENT FREE OF DISCHARGE. ETT TO VENT VCV-AC: 5 PEEP, 450 TV, 30 % FIO2, 16 RR. PT TOLERATING VENT, BREATHING E/U COUGHS OCCATIONALLY. MODERATE CHAMBERLAIN SECRETIONS, PT SUCTIONED. NSR, HR=77. PULSES ARE PALPABLE, CAP REFIL <3S. SKIN WARM/ DRY, COLOR CONSISTANT W/ ETHNICITY. NO EDEMA NOTED, EXTREMETIES OFFLOADED. PT HAS GENERALIZED WEAKNESS, BILATERAL SOFT WRIST RESTRAINTS, CSM WNL, SKIN INTACT. JOINTS INTACT, NO CONTRACTIONS NOTED. GRV=50. ABD IS SOFT, SLIGHLTY ROUNDED, BOWEL SOUNDS ACTIVE, PT HAS NO BM AT THIS TIME. F/C INTACT, NO SCROTAL EDEMA OR DISCHARGE NOTED, UNABLE TO ASSESS MOOD DUE TO INTUBATION/SEDATION. WILL CONTINUE TO MONITOR
--- NOTE | 2020-01-02 09:43 | NUR ---
RT PRESENT AT BEDSIDE.
--- NOTE | 2020-01-02 09:44 | NUR ---
MD PINK UPDATED ON PATIENTS STATUS, PER SEROQUEL DOSE INCREASED FROM 50MG BID TO 100MG BID, D/C PRECEDEX, AND OBTAIN ABG. UPDATED PATIENT'S (CINDY) ON PATIENTS STATUS. WILL CONTINUE TO MONITOR.
--- NOTE | 2020-01-02 09:45 | NUR ---
DR PINK TELEPHONED PATIENT'S SON CLAUDE AND DISCUSSED POC AND PATIENT'S POOR CONDITION. ALL QUESTIONS AND CONCERNS ADDRESSED BY DR PINK.
--- NOTE | 2020-01-02 12:12 | NUR ---
AFTER BEDBATH PT AWAKE, ABLE TO FOLLOW SIMPLE COMMANDS AND NOD HEAD TO YES/NO QUESTIONS. AT 1212 PT PLACED ON CPAP: PSV 8, 30% FO2 BY RT LIZETTE. WILL CONTINUE TO MONITOR.
--- NOTE | 2020-01-02 12:50 | NUR ---
AT 1250 PT SWITCHED FROM CPAP MODE TO VCV-AC: 30% FIO2, 16 RR, 450 TV, 5 PEEP, DUE TO PT HR INCREASING INTO LOW 130'S AND RESPIRATORY RATE IN LOW 30'S. TOTAL TIME ON CPAP APPROXIMATLY 37 MINUTES. WILL CONTINUE TO MONITOR.
--- NOTE | 2020-01-02 14:17 | NUR ---
TITRATED VERSED FROM 8MG/HR TO 10MG/HR AND MORPHINE FROM 3MG/HR TO 5MG/HR DUE TO PT BEING RESTLESS, HR IN 130S, AND RR >25. WILL CONTINUE TO MX
--- NOTE | 2020-01-02 15:20 | NUR ---
PT STILL RESTLESS AFTER SEDATION WAS 11MG/HR VERSED AND MORPHINE 6MG/HR. UPON REASSESSMENT OF RT PERIFERAL IV, THERE MAY HAVE BEEN SOME INFILTRATION, LT AND RT AC PIV WERE INSERTED, BOTH PATENT, INTACT, AND DRESSING WAS CDI. BILATERAL FOREARM IV WERE D/C, CATHETERS WERE INTACT. PT TOLERATED WELL. WILL CONTINUE TO MONITOR.
--- NOTE | 2020-01-02 18:00 | NUR ---
DR BERGERON AT BEDSIDE TO ASSESS PATIENT. UPDATES PROVIDED BY NURSING. NEW ORDERS RECEIVED FOR ABX.
--- NOTE | 2020-01-02 21:46 | NUR ---
REPORT RECIEVED FROM [facility]. NURSING UPDATES. POC DISCUSSED. SEE SHIFT ASSESSMENT FOR ASSESSMENT.
--- NOTE | 2020-01-02 22:43 | NUR ---
TITRATED VERSED FROM 10MG/HR TO 8MG/HR PER PT TOLERATING NO S/S OF DISTRESS TO ATTEMPT TO KEEP RSS 4. WILL CONT TO MONITOR.
[2020-01-03] VITALS (18 sets, daily range): BP systolic 106–186; BP diastolic 65–99
--- NOTE | 2020-01-03 00:35 | NUR ---
TITRATED MORPHINE FORM 6MG/HR TO 4MG/HR PER PT TOLERATING. NO S/S OF DISTRESS. VS WNL. WILL CONT TO MONITOR.
--- NOTE | 2020-01-03 02:00 | NUR ---
NOTIFIED PER RT, FIO2 25%. PT TOLERATING WELL O2 SAT MID TO HIGH 90'S. NO S/S OF RESP DISTRESS. WILL CONT TO MONITOR.
--- NOTE | 2020-01-03 04:00 | NUR ---
PT CLEANED AND LINENS CHANGED. NO ACUET CHANGES. WILL CONT TO MONITOR. COOLING MEASURES IN PLACE, ROOM TEMP ADJUSTED.
[2020-01-03 05:49] LABS: CALCIUM 8.9 mg/dL (8.5-10.1); CARBON DIOXIDE 27.6 mmol/L (21-32); CHLORIDE SERUM 106 mmol/L (98-107); CREATININE SERUM 0.8 mg/dL (0.7-1.3); GFR1 > 60 mL/min; GLUCOSE SERUM 137 mg/dL (74-106); POTASSIUM SERUM 3.9 mmol/L (3.5-5.1); SODIUM SERUM 143 mmol/L (136-145)
[2020-01-03 05:53] LABS: BASOPHIL % 0.2 % (0-2); PLATELET COUNT 326 x10^3mcL (130-400); RED CELL DISTRIBUTION WIDTH 13.4 % (11.5-14.5)
--- NOTE | 2020-01-03 08:00 | NUR ---
REPORT RECEIVED BY EMORY STUDIO OPERATOR RN. PATIENT IN SEMI-GRAVES POSITION. BED LOWEST POSITION. PATIENT INTUBATED 7.5, 25CM @LL. ETT TO VENT: VCV/AC MODE: FIO2: 25% RR RATE: 16 VT: 450 PEEP:5. ENSURE INFUSING AT 45ML/HR FWF 50ML/Q6HR, LEFT NARE NGT. SOFT WRIST RETRAINTS, BUE. RAC AND LAC INTACT AND PATENT. LAMB INTACT AND DRAINING TO GRAVITY, CLEAR AND YELLOW URINE. SIDE RAILS UP X2. PRESSURE POINTS OFFLOADED.
--- NOTE | 2020-01-03 14:25 | NUR ---
1. Recommend continue TF-Pivot at 45ml/hr fwf 50ml Q6H. This will provide a volume of 1080ml, 1620kcal, 101.3g protein and 1019 ml free water flush (including fwf 200ml). It will meet 87% (96% [id number]) of the estimated kcal needs, and 91% of the estimated protein needs. 2. Recommend continue fwf 50 ml Q6H per MD
--- NOTE | 2020-01-03 14:25 | NUR ---
Follow-up Nutrition Assessment: ICU6 MILAGROS FRIAS 64M HR FU Dx: Sycope, influenza B, dehydration PMHx: HTN Labs: (01/02) Glu 137H, BUN 24H, H/H 12/36L Meds: Dulcolax, Lactinex, Morphine, Norvasc, Pepcid, Seroquel, sodium chloride, Vancocin, Versed, Zosyn PRN meds: Robitussin, Tessalon, Tylenol, Ventolin Diet: TF-Pivot at 45ml/hr fwf 50ml Q6H. This will provide a volume of 1080ml, 1620kcal, 101.3g protein and 1019 ml free water flush (including fwf 200ml). It will meet 87% (96% [id number]) of the estimated kcal needs, and 91% of the estimated protein needs. PO Intake: NPO TF intake: (01/02)945ml, (01/01)1004ml, (12/31)1078ml, (12/30)920ml, (12/29)880ml, (12/28)660ml, (12/27)1143ml Weights: (01/02)72kg, (12/30)68.8kg, (12/28)70kg, (12/26)74kg *weight loss Edema: No edema noted Last BM: No BM noted at this time. 1 BM noted in intake and output summary Skin: Skin intact Jagjit: 17 I/Os: (01/02) 1952/2100ml = -148ml, (01/01)1791/1650ml = 141ml, (12/31)1943/2050ml = -107ml (12/30)1330/1550ml = -220ml, (12/29)1684/1200ml = 484ml, (12/28)1636/1950ml = -314ml Per last RD note (12/30), pt remained on vent and sedation. Tube feeding was running at 45 ml/hr, and no residual noted. During visit. RN also reported BM between 12/28-12/29 during non profit financial controller. Recommended pivot at 50ml/hr for higher kcal d/t pt not on Propofol. RD Note (01/02): Per progress note (01/02), pt will remain on vent and continue current treatment. Thick/green secretion noted. Per RN reassessment note (01/02), tube feeding is infusing at 45 ml/hr, and pt is tolerating well with no residuals noted. Pt was lying in bed on ventilator with no signs of distress. Estimated Nutritional Needs Based on current body weight (74 kg) Energy:4906-7297 vs. 1678 kcal/day (25-30 kcal/kg vs [id number] for ventilator dependence) Protein: 111-148g/day (1.5-2 /kg for ventilator dependence) Fluid: 4325-8719 mL/day (1 mL/kcal) or per MD Nutrition Diagnosis: (Resolved) 1. Inadequate intake of enteral nutrition r/t intake of TF not meeting needs a/e/b current rate of 35ml/hr provides 54% of kcal needs. (New) 2. Altered GI function r/t critical illness and intubation a/e/b pt dependence on nutrition support. Intervention: 1. Recommend continue TF-Pivot at 45ml/hr fwf 50ml Q6H. This will provide a volume of 1080ml, 1620kcal, 101.3g protein and 1019 ml free water flush (including fwf 200ml). It will meet 87% (96% [id number]) of the estimated kcal needs, and 91% of the estimated protein needs. 2. Recommend continue fwf 50 ml Q6H per MD Monitor/Evaluate: Goal: Have pt meet at least 75% of estimated needs via nutrition support (met, ongoing) Monitor: Nutrition support tolerance, Labs, GI function F/U in 2-3 days as high risk 01/04-
--- NOTE | 2020-01-03 15:44 | NUR ---
DR. RO AT BEDSIDE SEEING PATIENT. PROVIDED AN UPDATED.
--- NOTE | 2020-01-03 18:27 | NUR ---
DR. GO AT BEDSIDE SEEING PATIENT. PROVIDED UPDATE
--- NOTE | 2020-01-03 18:54 | NUR ---
REPORT GIVEN TO JUAN LUIS KITCHEN CLEANER RN, WHO WILL ASSUME CARE FOR FOR THIS PATIENT. ALL QUESTIONS AND CONCERNS ADDRESSED.
--- NOTE | 2020-01-03 19:05 | NUR ---
RECEIVED REPORT FROM TAISHA SANTANA. WILL RESUME CARE.
--- NOTE | 2020-01-03 19:25 | NUR ---
RECEIVED PT INTUBATED AND SEDATED ON VERSED AT 5MG/HR AND MORPHINE AT 4MG/HR, RSS 4. PUPILS 4MM SLUGGISH. 7.5 ETT AT 25CM LL INTACT AND SECURED. L NGT INTACT AND SECURED. NO REDNESS, DRAINAGE, OR SWELLING NOTED TO EENT. ON VENT VCV-AC MODE WITH SETTINGS OF VT 450, FIO2 25%, R 16, PEEP 5. LUNG SOUNDS DIMINIAHED TO BASES. BREATHING E/U. S1S2 AUSCULTATED. NO S/SX OF CHEST PAIN. CAP REFILL <3 SEC. NO EDEMA NOTED. PULSES PALPABLE. GENERALIZED WEAKNESS. BILATERAL SOFT WRIST RESTRAINTS IN PLACE FOR PT'S SAFETY. ON PIVOT 45CC/HR WITH FWF OF 50CC Q6HRS WITH NO RESIDUAL NOTED. PT TOLERATING TF WELL. PLACEMENT CHECKED. ABDOMEN SOFT, NONTENDER. BS ACTIVE X 4. NO N/V. NO BM AT THIS TIME. LAMB CATHETER IN PLACE DRAINING VIA GRAVITY YELLOW URINE. SKIN INTACT BED IN LOW POSITION. CALL LIGHT WITHIN REACH.
--- NOTE | 2020-01-03 20:23 | NUR ---
PT HAS TEMP OF 101.9. GIVEN TYLENOL 650MG VIA NGT. WILL CONTINUE TO MONITOR.
[2020-01-04] VITALS (16 sets, daily range): BP systolic 96–158; BP diastolic 62–109
--- NOTE | 2020-01-04 04:30 | NUR ---
PT CLEANED. ALL LINENS AND GOWN CHANGED. NO BM DURING SHIFT. 750CC OF YELLOW URINE OUTPUT. LAMB CATHETER CARE PROVIDED.
--- NOTE | 2020-01-04 05:00 | NUR ---
RENTAL MANAGEMENT TRAINEE AT BEDSIDE FOR BLOOD DRAW.
[2020-01-04 05:58] LABS: BASOPHIL % 0.8 % (0-2); PLATELET COUNT 302 x10^3mcL (130-400); RED CELL DISTRIBUTION WIDTH 13.3 % (11.5-14.5)
[2020-01-04 06:04] LABS: CALCIUM 9.1 mg/dL (8.5-10.1); CARBON DIOXIDE 29.8 mmol/L (21-32); CHLORIDE SERUM 104 mmol/L (98-107); CREATININE SERUM 0.8 mg/dL (0.7-1.3); GFR1 > 60 mL/min; GLUCOSE SERUM 132 mg/dL (74-106); POTASSIUM SERUM 4.3 mmol/L (3.5-5.1); SODIUM SERUM 141 mmol/L (136-145)
--- NOTE | 2020-01-04 07:30 | NUR ---
RECEIVED REPORT FROM JUAN LUIS SALES ACCOUNT LEADER RN. PATIENT IN HELENE-GRAVES POSITION. PATIENT INTUBATED 7.5 AT 25 CM @ LL AND SEDATED ON MORPHINE 4MG/HR AND VERSED 5 MG/HR. ETT TO VENT SETTINGS: VCV RATE:25 VT:450 PEEP: 5 FIO2:25% LAMB INTACT AND DRAINING VIA GRAVITY URINE YELLOW AND CLEAR. PATIENT IS ON SOFT WRIST RESTRAINTS BILATERALLY. PIVOT FEEDING INFUSING AT 45ML/HR FWF 50ML/Q6HR THROUGH LEFT NARE NGT. BED LOWEST POSITION. SIDE RAILS X4. ALL PRESSURE POINTS OFFLOAD.
--- NOTE | 2020-01-04 07:55 | NUR ---
PATIENT ON CPAP PEEP:5 AND PSV:8
--- NOTE | 2020-01-04 08:50 | NUR ---
DR. HUGHES WAS IN TO SEE THE PATIENT. UPDATE PROVIDED TO THE DOCTOR. WILL CARRY NEW ORDERS WHEN GIVEN OUT.
--- NOTE | 2020-01-04 09:00 | NUR ---
MORPHINE TITRATED FROM 4MG/HR TO 3MG/HR.PATIENT TOLERATING WELL. NO SIGN OF DISTRESS. WILL CONTINUE TO MONITOR.
--- NOTE | 2020-01-04 09:00 | NUR ---
VERSED TITRATED FROM 5 MG/HR TO 4MG/HR PER PATIENT TOLERATING WELL. NO SIGN OF DISTRESS. WILL CONTINUE TO MONITOR.
--- NOTE | 2020-01-04 11:00 | NUR ---
MORPHINE TITRATED FROM 3MG/HR TO 2 MG/HR PATIENT IS TOLERATING WELL. NO S/S OF DISTRESS. WILL CONTINUE TO MONITOR.
--- NOTE | 2020-01-04 11:00 | NUR ---
VERSED TITRATED FROM 4MG/HR TO 3MG/HR PATIENT IS TOLERATING WELL. NO S/S OF DISTRESS. WILL CONTINUE TO MONTIOR.
--- NOTE | 2020-01-04 11:26 | NUR ---
PHARMACY WAS CALLED TO REQUEST FOR PRECEDEX. THE MED WAS RECEIVED AND INITIATED AT 0.7MCG/KG/HR THIS TIME.
--- NOTE | 2020-01-04 12:00 | NUR ---
VERSED TITRATED FROM 3MG/HR TO 2MG/HR PER PATIENT TOLERATING WELL. NO S/S DISTRESS. VS WNL. WILL CONTINUE TO MONITOR.
--- NOTE | 2020-01-04 13:00 | NUR ---
MORPHINE TITRATED FROM 2MG/HR TO 1MG/HR PER PATIENT TOLERATING WELL. NO S/S DISTRESS. VS WNL. WILL CONTINUE TO MONITOR.
--- NOTE | 2020-01-04 13:30 | NUR ---
VERSED TITRATED FROM 2MG/HR TO 1MG/HR PER PATIENT TOLERATING WELL. NO S/S OF DISTRESS. VS WNL. WILL CONTINUE TO MONITOR.
--- NOTE | 2020-01-04 14:45 | NUR ---
VERSED STOPPED AT 1443. TO DECREASE LEVEL OF SEDATION PER DRDevon PATIENT TOLERATING WELL. VS WNL. WILL CONTINUE TO MONITOR.
--- NOTE | 2020-01-04 16:08 | NUR ---
MORPHINE IV DRIP STOPPED AT THIS TIME TO DECREASE LEVEL OF SEDATION. PT WILL BE CLOSLEY MONITORED.
--- NOTE | 2020-01-04 16:37 | NUR ---
PT WAS ON CPAP AND PLACED BACK ONTO AC MODE ON THE VENT BY RT LIZETTE. RT LIZETTE REPORTED THAT THE PT WAS NOT FOLLOWING THE COMMAND OF TAKING A DEEP INSPIRATION SO SHE SWITCHED THE PT FROM CPAP TO AC MODE ON THE VENT. PT IS 100% WITH THE CURRENT VENT SETTING OF: RATE: 16 VT:450 PEEP: 5 FIO2: 25%
--- NOTE | 2020-01-04 17:30 | NUR ---
RESTRAINTS RELEASED AND BLE ROM EXERCISED COMPLETED. RESTRAINTS REAPPLIED. ORAL CARE PROVIDED TO THE PT. ET TUBE SUCTIONED WITHOUT INCIDENCE. PT MOVING BLE WITHOUT LIMITATIONS. PILLOW PLACED UNDER BLE. PT VERY LETHARGIC BUT OPENS EYES TO LOUD VERBAL STIMULI AND FOLLOWS COMMANDS. I DID NOTICE THAT HIS LEFT HAND BREAKER LAYER WAS WEAKER THAN THE RIGHT. NO FACIAL DROOP NOTED AND PEDAL PUSHES EQUAL BILATERALLY.
--- NOTE | 2020-01-04 19:15 | NUR ---
RECEIVED CHANGE OF SHIFT REPORT FROM KAREN SANTANA. PT IS INTUBATED AND SEDATE ON PRECEDEX AT 1.4MCG/KG/HR. ETT ON AC MODE. SKIN INTACT. LEFT NGT INTACT AND INFUSING PIVOT AT 45ML/HR WITH FWF 50ML Q6H. PERIPHERAL IV TO LFA AND RFA INTACT, PATENT, DRESSING CDI. LAMB INTACT AND DRAINING VIA GRAVITY. PT ON CONTINOUS CARDIAC AND PULSE OX MONITOR. WILL CONTINUE TO MONITOR.
--- NOTE | 2020-01-04 19:17 | NUR ---
REPORT GIVEN TO CHRISTINA WHO WILL ASSUME CARE FOR THIS PT. THE IV BAG OF VERSED AND MORPHINE USED TODAY WAS NOT WASTED DURING DAY SHIFT AND IS ENDORSED TO CHRISTINA.
--- NOTE | 2020-01-04 20:00 | NUR ---
PT REMAINS RESTLESS AND AGITATED. STARTED MORPHINE DRIP AT 1MG/HR. WILL CONTINUE TO MONITOR.
--- NOTE | 2020-01-04 20:30 | NUR ---
PT REMAINS RESTLESS AND AGITATED. STARTED VERSED AT 1MG/HR. WILL CONTINUE TO MONITOR.
--- NOTE | 2020-01-04 21:00 | NUR ---
PT REMAINS RESTLESS AND AGITATED. STARTED VERSED AT 2MG/HR. WILL CONTINUE TO MONITOR.
--- NOTE | 2020-01-04 21:30 | NUR ---
PT REMAINS RESTLESS AND AGITATED. STARTED VERSED AT 3MG/HR. WILL CONTINUE TO MONITOR.
--- NOTE | 2020-01-04 21:53 | NUR ---
TITRATED PRECEDEX TO 0.7 MCG/KG/HR. WILL CONTINUE TO MONITOR.
--- NOTE | 2020-01-04 22:00 | NUR ---
PT REMAINS RESTLESS AND AGITATED. STARTED VERSED AT 4MG/HR. WILL CONTINUE TO MONITOR.
--- NOTE | 2020-01-04 22:29 | NUR ---
PT REMAINS RESTLESS AND AGITATED. TITRATED VERSED TO 5MG/HR. WILL CONTINUE TO MONITOR.
--- NOTE | 2020-01-04 22:58 | NUR ---
HR: 50. TURNED OFF MORPHINE DRIP AT THIS TIME. WILL CONTINUE TO MONITOR.
[2020-01-05] VITALS (12 sets, daily range): BP systolic 103–155; BP diastolic 62–94
--- NOTE | 2020-01-05 00:07 | NUR ---
HR: 49. TITRATED VERSED TO 4MG/HR. WILL CONTINUE TO MONITOR.
--- NOTE | 2020-01-05 00:30 | NUR ---
HR: 49. TURNED OFF PRECEDEX AT THIS TIME. WILL CONTINUE TO MONITOR. RSS OF 5.
--- NOTE | 2020-01-05 02:15 | NUR ---
RSS OF 3. TITRATED VERSED TO 5MG/HR. WILL CONTINUE TO MONITOR.
--- NOTE | 2020-01-05 02:45 | NUR ---
TITRATED VERSED TO 6MG/HR
--- NOTE | 2020-01-05 02:52 | NUR ---
HR: 74. RSS OF 3. TITRATED VERSED TO 7MG/HR. WILL CONTINUE TO MONITOR.
--- NOTE | 2020-01-05 05:15 | NUR ---
PT HAD A SMALL LOOSE BROWN BOWEL MOVEMENT.
[2020-01-05 05:43] LABS: BASOPHIL % 0.3 % (0-2); PLATELET COUNT 339 x10^3mcL (130-400); RED CELL DISTRIBUTION WIDTH 12.9 % (11.5-14.5)
[2020-01-05 05:51] LABS: CALCIUM 9.3 mg/dL (8.5-10.1); CARBON DIOXIDE 31.2 mmol/L (21-32); CHLORIDE SERUM 104 mmol/L (98-107); CREATININE SERUM 0.8 mg/dL (0.7-1.3); GFR1 > 60 mL/min; GLUCOSE SERUM 114 mg/dL (74-106); MAGNESIUM 2.6 mg/dL (1.8-2.4); POTASSIUM SERUM 4.2 mmol/L (3.5-5.1); SODIUM SERUM 142 mmol/L (136-145)
--- NOTE | 2020-01-05 06:30 | NUR ---
RSS OF 3. TITRATED VERSED TO 8MG/HR
--- NOTE | 2020-01-05 07:18 | NUR ---
GAVE NURSING REPORT TO AYLIN SANTANA. QUESTIONS ANSWERED. ENDORSE CARE.
--- NOTE | 2020-01-05 07:50 | NUR ---
RECEIVED PT'S REPORT FROM LEAVING NURSE. PT IS ON DROPLET ISOLATION FOR COVID 19. PT IS SEDATED ON VERSED AT 8MG/HR AT THIS TIME. MORPHINE AND PRECEDEX IS HELD BY TUTORING MANAGER NURSE 2/2 PT'S HR AT 50-60s. PT IS ON VENT VCV MODE: PEEP 5, FIO2 25%, RR 22. NGT IN PLACE CONNECTED TO PIVOT FEEDING AT 45ML/HR WFW 50ML Q6H. LAMB IN PLACE, DRAINING VIA GRAVITY. RFA AND LFA IV SITE PATENT, INTACT. MEDS IS INFUSING. WILL CONTINUE TO MORNITOR.
--- NOTE | 2020-01-05 10:00 | NUR ---
DR. DOSS LED MORNING MEDICAL TEAM MAKING MORNING ROUND, ASSESSED PT BEDSIDE. PT'S CONDITION UPDATED.
--- NOTE | 2020-01-05 10:05 | NUR ---
RT PUT PT ON CPAP NODE: FIO2 25%, PSV 8, PEEP 5, RR 22.
--- NOTE | 2020-01-05 10:05 | NUR ---
PT PLACED ON CPAP 04/26 ORDERED. PT TOLERATING WELL AT THIS TIME. VOLUMES IN 500'S. SATURATION 97% HR 92 RR 25. NURSE AWARE. WILL MONITOR.
--- NOTE | 2020-01-05 11:05 | NUR ---
DR. HUGHES ASSESSED PT BEDSIDE. PT IS ON CPAP AT THIS TIME. PER DR. HUGHES, VERSED IS TURNED OFF, PRECEDEX ON 0.4 MCG/KG/H, MORPHINE AT 1MG/HR, ABG CHECK. GETTING PT FOR POSSIBLE EXTUBATION.
--- NOTE | 2020-01-05 11:39 | NUR ---
DR HUGHES ON THE PHONE WITH CINDY FRIAS. UPDATED ON PTS CURRENT STATUS AND PLAN OF CARE. QUESTIONS AND CONCERNS ADDRESSED
--- NOTE | 2020-01-05 14:05 | NUR ---
PT EXTUBATED PER ORDER FROM DR HUGHES. PT TOLERATED PROCEDURE WELL. PT PLACED ON 3L OXYMIZER. SATURATION 100% HR 130'S. RR 15. PT IN NO RESP DISTRESS. PT WITH SOME AGITATION. PTS MOUTH SUCTIONED. WILL MONITOR. NURSES AWARE.
--- NOTE | 2020-01-05 14:10 | NUR ---
PT IS EXTUBATED AT 1405. NGT IS REMOVED AT THS SAME TIME. PT IS PUT ON OXYMIZER 3L. PRECEDEX IS INFUSING AT 0.2MCG/KG/H. REORIENTED PT. WILL CONTINUE TO MONITOR.
--- NOTE | 2020-01-05 14:34 | NUR ---
CINDY CALLED AT THIS TIME. UPDATED ON PTS CURRENT STATUS. ALL QUESTIONS AND CONCERNS ADDRESSED. NOTIFIED THAT PT WAS EXTUBATED AT 1405 AND IS TOLERATING WELL. PT CURRENTLY ON 3L O2 VIA NC, VITAL SIGNS FOLLOWED; BP 135/78 (97) HR 144, RESP 15, SPO2 99%. WILL CONT TO MONITOR CLOSELY
--- NOTE | 2020-01-05 14:48 | NUR ---
SPOKE WITH DR BARRIOS AND REPORTED PATIENT WAS EXTUBATED AT 1405 ON OXIMIZER 3LPM WITH SPO2 97%. NEW ORDERS RECEIVED TO DC MORPHINE AND VERSED DRIP BUT KEEP PRECEDEX ON AT TITRATE NEEDED.
--- NOTE | 2020-01-05 15:27 | NUR ---
Follow-up Nutrition Assessment: ICU6 MILAGROS FRIAS 64M HR FU Dx: Sycope, influenza B, dehydration PMHx: HTN Labs: (01/04) Glu 114H, BUN 23H, H/H 12.1/36L Meds: Morphine, Norvasc, Pepcid, Precedex, Seroquel, Sodium chloride, Versed, Zosyn PRN meds: Robitussin, Tessalon, Tylenol, Ventolin Diet: TF-Pivot at 45ml/hr fwf 50ml Q6H. This will provide a volume of 1080ml, 1620kcal, 101.3g protein and 1019 ml free water flush (including fwf 200ml). It will meet 95% (100% [id number]) of the estimated kcal needs, and 99% of the estimated protein needs. PO Intake: NPO Tube feed intake: (01/03) 1058ml, (01/02)945ml, (01/01)1004ml, (12/31)1078ml Weights: (01/04)68kg, (01/03)72kg, (01/02) 72kg Edema: No edema noted. Last BM: none noted Skin: Skin intact Jagjit: 17 I/Os: (01/03) 1959/1650ml = 309ml, (01/02)1952/2100ml = -148ml, (01/01)1791/1650ml = 141ml Per last RD note (01/02), pt continued to be on vent and current treatment. Thick/green secretion noted. Pt's tube feeding was infusing at goal 45ml/hr, and no residual was noted. RD Note (01/04): Per RN reassessment note (01/04), pt is tolerating pivot well with GRV=0ml. Per progress note (01/04), pt was on CPAP, but pt did not tolerate for very long with persistent agitation. Pt was lying in bed on vent during visit. Pt did not appear to be in any distress, and tube feeding was running at goal rate. Per RN residuals this morning was 0ml, and it was 10ml later. RN also reported loose stool, but possibly d/t ABX. Estimated Nutritional Needs Based on current body weight (68 kg) Energy:2953-9716 vs. 1480 kcal/day (25-30 kcal/kg vs [id number] for ventilator dependence) Protein: 102-136 g/day (1.5-2 /kg for ventilator dependence) Fluid: 4517-1947 mL/day (1 mL/kcal) or per MD Nutrition Diagnosis: (Resolved) 1. Inadequate intake of enteral nutrition r/t intake of TF not meeting needs a/e/b current rate of 35ml/hr provides 54% of kcal needs. (ongoing) 2. Altered GI function r/t critical illness and intubation a/e/b pt dependence on nutrition support. Intervention: 1. Recommend continue Pivot at 45ml/hr fwf 50ml Q6H. This will provide a volume of 1080ml, 1620kcal, 101.3g protein and 1019 ml free water flush (including fwf 200ml). It will meet 95% (100% [id number]) of the estimated kcal needs, and 99% of the estimated protein needs. Monitor/Evaluate: Goal: Have pt meet at least 75% of estimated needs via nutrition support (met, ongoing goal) Monitor: Nutrition support tolerance, Labs, GI function F/U in 2-3 days as high risk 01/06-
--- NOTE | 2020-01-05 15:29 | NUR ---
1. Recommend continue Pivot at 45ml/hr fwf 50ml Q6H. This will provide a volume of 1080ml, 1620kcal, 101.3g protein and 1019 ml free water flush (including fwf 200ml). It will meet 95% (100% [id number]) of the estimated kcal needs, and 99% of the estimated protein needs.
--- NOTE | 2020-01-05 15:57 | NUR ---
CHECKED ON PT. PT REMAINS TOLERATING OXYMIZER. PT IN NO DISTRESS. SATURATION 100% HR 131. WILL MONITOR.
--- NOTE | 2020-01-05 16:37 | NUR ---
PT IS GETTING RESTLESS, AND TRYING TO GET OUT OF BED. ATIVAN 2MG IVP GIVEN PER PRN ORDER.
--- NOTE | 2020-01-05 18:39 | NUR ---
PT'S , CINDY DROPPED OFF IPHONE FOR PATIENT WITH DATA CAPTURE CLERK, IPHONE WATCH DATA CAPTURE CLERK, PLACED AT PATIENTS BEDSIDE
--- NOTE | 2020-01-05 19:05 | NUR ---
RECEIVED REPORT FORM ISABEL SANTANA. WILL RESUME CARE.
--- NOTE | 2020-01-05 19:14 | NUR ---
REPORT GIVEN CHAI SANTANA, ALL QUESTIONS AND CONCERNS ANSWERED.
--- NOTE | 2020-01-05 19:20 | NUR ---
RECEIVED PT ALERT AND ORIENTED TO PERSON. ABLE TO FOLLOW SIMPLE COMMANDS. SPEECH GARBLED. PUPILS 4MM BRISK. BREATHING E/U. ON 3L VIA OXIMIZER, O2SAT 97%. LUNG SOUNDS CTA. NO REDNESS, DRAINAGE, OR SWELLING NOTED TO EENT. S1S2 AUSCULTATED. PT STATES NO CHEST PAIN AT THIS TIME. CAP REFILL <3 SEC. NO EDEMA NOTED. PULSES PALPABLE. GENERALIZED WEAKNESS. ABDOMEN SOFT, NONTENDER. BS ACTIVE X 4. NO N/V. FOLAEY CATHETER IN PLACE DRAINING VIA GRAVITY YELLOW URINE. BED IN LOW POSITION. CALL LIGHT WITHIN REACH. WILL CONTINUE TO MONITOR.
--- NOTE | 2020-01-05 22:39 | NUR ---
PT RESTLESS, WITH INCREASED AGITATION. PT GIVEN ATIVAN 2MG IVP PRN. WILL CONTINUE TO MONITOR.
--- NOTE | 2020-01-06 02:26 | NUR ---
PT RECEIVED 2MG MORPHINE IV PUSH PRN FOR FACIAL GRIMACE OF PAIN AND INCREASED AGITATION. WILL CONTINUE TO MONITOR.
[2020-01-06 03:16] VITALS: BP 134/96
--- NOTE | 2020-01-06 04:33 | NUR ---
EVENT PROMOTER AT BEDSIDE FOR BLOOD DRAW.
--- NOTE | 2020-01-06 04:34 | NUR ---
AG SERVICE MANAGER AT BEDSIDE FOR BLOOD DRAW.
[2020-01-06 05:19] LABS: CALCIUM 9.4 mg/dL (8.5-10.1); CARBON DIOXIDE 27.3 mmol/L (21-32); CHLORIDE SERUM 108 mmol/L (98-107); CREATININE SERUM 0.8 mg/dL (0.7-1.3); GFR1 > 60 mL/min; GLUCOSE SERUM 138 mg/dL (74-106); POTASSIUM SERUM 3.9 mmol/L (3.5-5.1); SODIUM SERUM 143 mmol/L (136-145)
[2020-01-06 05:38] LABS: BASOPHIL % 0.5 % (0-2); PLATELET COUNT 346 x10^3mcL (130-400); RED CELL DISTRIBUTION WIDTH 12.6 % (11.5-14.5)
--- NOTE | 2020-01-06 06:00 | NUR ---
PT TITRATED DOWN TO 2L O2 VIA OXIMIZER. WILL CONTINUE TO MONITOR.
--- NOTE | 2020-01-06 06:06 | NUR ---
MADE DR. LY AWARE OF LAB VALUE MAG 2.6.
--- NOTE | 2020-01-06 07:15 | NUR ---
REPORT RECEIVED FROM EMORY SANTANA. ALL QUESTIONS AND CONCERNS ADDRESSED.
--- NOTE | 2020-01-06 07:20 | NUR ---
RECEIVED REPORT FROM CHAI SANTANA, WILL RESUME ALL CARES
--- NOTE | 2020-01-06 07:20 | NUR ---
REPORT RECIEVED FROM EMORY SANTANA, WILL RESUME ALL CARES
[2020-01-06 07:30] VITALS: BP 129/90
--- NOTE | 2020-01-06 08:15 | NUR ---
BEDSIDE SWALLOW EVALUATION COMPLETED, PATIENT TOLERATED, GEL, APPLE SAUCE, PUDDING, JUICE, AND WATER VIA STRAW WELL. NO POCKETING, NO COUGHING OR S/S OF DIFFICULTY SWALLOWING. BLUEPRINT DUPLICATOR AWARE, WILL CONTINUE TO MONITOR
--- NOTE | 2020-01-06 09:37 | NUR ---
PRECEDEX HELD , PT CURRENTLY CALM, FOLLOWING COMMANDS.
--- NOTE | 2020-01-06 09:50 | NUR ---
MD UHGHES UPDATED ON PATIENTS STATUS. SEROQUL NOW BID 100MG PO. PT ON MECHANICAL SOFT DIET.
--- NOTE | 2020-01-06 10:19 | NUR ---
PT'S CINDY UPDATED ON PATINETS STATUS, ALL QUESTIONS & CONCERS ANSWERED
[2020-01-06 11:00] VITALS: BP 149/91
--- NOTE | 2020-01-06 11:00 | NUR ---
COVID 19 NASAL SWAB COLLECTED BY RN, SENT TO LAB
--- NOTE | 2020-01-06 15:30 | NUR ---
MD RO UPDATED ON PATIENT'S STATUS, NO NEW ORDERS
[2020-01-06 15:55] VITALS: BP 145/89
--- NOTE | 2020-01-06 16:15 | NUR ---
PT TALKED TO CINDY VIA PT'S PHONE. PT TOLD HIS "I'M " AND STARTED TO GET EMOTIONAL & TEAR UP. REASSURED PATIENT AND PATIENT STARTED TO CALM DOWN. PT "I DON'T REMEMBER" WHEN ASKED PT FOR THEIR CHILDREN'S NAMES.
--- NOTE | 2020-01-06 18:58 | NUR ---
PT RT PERIPHERAL IV WAS D/C DUE TO PIV LEAKING & POSSIBLE INFILTRATION. CATHETER INTACT PAOLA WAS PLACED OVER IV SITE.
[2020-01-06 19:20] VITALS: BP 144/93
--- NOTE | 2020-01-06 19:20 | NUR ---
RECEIVED REPORT FROM MAX HALL. PT IS ALERT AND ORIENTED TO PERSON, REMAINS CONFUSED AT TIMES. PUPILS 3MM AND BRISK. PT REMAINS ON 2L O2 VIA OXIMIZER. LUNG SOUNDS CLEAR UL AND DIMINISHED LL. S1S2 AUSCULTATED, PT SINUS TACH ON HOME HEALTH AID. PULSES MODERATE X4, NO EDEMA NOTED. LEFT AC PERIPHERAL LINE INTACT WNL. BOWEL SOUNDS PRESENT X4Q, PT TOLERATING MECHANICAL SOFT DIET. LAMB INTACT AND DRAINING YELLOW URINE VIA GRAVITY. SKIN INTACT. PT CALM AND COOPERATIVE AT THIS TIME. WILL CONTINUE TO MONITOR.
--- NOTE | 2020-01-06 19:20 | NUR ---
RECEIVED REPORT FROM MAX HALL. PT VERY LETHARGIC AND ORIENTED X1 TO PERSON. PUPILS 3MM AND BRISK. PT REMAINS ON 2L O2 VIA OXIMIZER. LUNG SOUNDS CLEAR UL AND DIMINISHED LL. 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 PULSES MODERATE X4, NO EDEMA NOTED. LEFT AC PERIPHERAL LINE INTACT WNL. BOWEL SOUNDS PRESENT X4Q, PT TOLERATING MECHANICAL SOFT DIET. LAMB INTACT AND DRAINING YELLOW URINE VIA GRAVITY. SKIN INTACT. PT CALM RESTING IN BED AT THIS TIME. WILL CONTINUE TO MONITOR.
[2020-01-07 00:05] VITALS: BP 149/90
--- NOTE | 2020-01-07 00:41 | NUR ---
RT AT BEDSIDE. OXIMIZER CHANGED TO NASAL CANNULA AT 2L. O2 SAT 97%.
--- NOTE | 2020-01-07 00:44 | NUR ---
RT AT BEDSIDE. OXIMIZER CHANGED TO NASAL CANNULA AT 3L. O2 SAT 97%.
--- NOTE | 2020-01-07 04:00 | NUR ---
UPON CLEANING PT. PT IS NOW NOT RESPONDING TO TACTILE STIMULI. PT IS OBTUNDED. PUPILS 3MM SLUGGISH. VS: HR 112, B/P 155/102, RR 24, O2SAT 97% ON 2L VIA NC. DR. LY MADE AWARE OF PT STATUS. MD WILL ORDER CHEST X-RAY AND CT OF HEAD.
[2020-01-07 04:05] VITALS: BP 155/102
--- NOTE | 2020-01-07 04:05 | NUR ---
ABG BEING DONE AT BEDSIDE BY LIZETTE HUTCHISON CHECKED BY MYSELF, BS 135.
--- NOTE | 2020-01-07 05:55 | NUR ---
PT TAKEN OFF UNIT FOR CT OF HEAD ACCOMPANIED BY BOX REPAIRER, MYSELF, AND KAYLYN SANTANA. P
[2020-01-07 06:06] LABS: CALCIUM 9.4 mg/dL (8.5-10.1); CARBON DIOXIDE 29.1 mmol/L (21-32); CHLORIDE SERUM 106 mmol/L (98-107); CREATININE SERUM 0.8 mg/dL (0.7-1.3); GFR1 > 60 mL/min; GLUCOSE SERUM 130 mg/dL (74-106); POTASSIUM SERUM 3.5 mmol/L (3.5-5.1); SODIUM SERUM 143 mmol/L (136-145)
--- NOTE | 2020-01-07 06:07 | NUR ---
PT BACK ON UNIT FROM CT OF HEAD. HOOKED UP TO PORK CUTLET MAKER AND 3L OXYGEN VIA NC. PT TOLERATED WELL.
--- NOTE | 2020-01-07 06:42 | NUR ---
Relayed CT Scan of the head results to Dr lOivas with no new orders. CT Scan results recommend CTA or MRI be done , Dr Olivas made aware. Will continue to monitor.
[2020-01-07 06:43] LABS: BASOPHIL % 0.3 % (0-2); PLATELET COUNT 384 x10^3mcL (130-400); RED CELL DISTRIBUTION WIDTH 12.8 % (11.5-14.5)
[2020-01-07 07:30] VITALS: BP 161/100
--- NOTE | 2020-01-07 07:30 | NUR ---
PT IS AAOX4. PT IN PRONE POSITION. RESP SHALLOW AND TACHYPENIC AT 40 BPM. LUNG SOUND CTA, DIMINISHED BILATERALLY. PT ON NONREBREATHER 15LPM. TELE [address] READING NSR. PERIPHERAL PULSES PALPABLE. NO EDEMA. SKIN CDI. IV CATH TO LH FLUSHED AND PATENT. SITE WNL. NO S/S OF INFECTION. COVERED WITH CDI OCCLUSIVE DRESSING. PT DENIES PAIN AT THIS TIME. PT EDUCATED TO REMAIN IN PRONE POSITION TO INCREASE VENTILATION. PT VERBALIZED UNDERSTANDING. CALL LIGHT WITHIN REACH. BED IN LOWEST POSITION.
--- NOTE | 2020-01-07 07:30 | NUR ---
PT IS OBTUNDED. NONRESPONSIVE TO PAINFUL STIMULI. PUPILS, EQUAL, SLUGISH, 2MM BILATERALLY. RESP EVEN AND UNLABORED. LUNG SOUNDS DIMINISHED BILATERALLY. ON 02 N/C AT 2 LPM. NO COUGH NOTED. TELE [address] READING NSR WITH PACS. ABDOMEN SOFT, NONTENDER, NONDISTENDED. BOWEL SOUNDS HYPOACTIVE. NO REPORTS OF DIARRHEA, LAST BM 01/04, SMALL, SOFT. SKIN CDI, NO EDEMA. PERIPHERAL PULSES PALPABLE. CAP REFILL < 3 SECONDS, SKIN WARM. IV CATH TO LFA. SITE WNL. LAMB CATH IN PLACE, PATENT, DRAINING DARK YELLOW URINE TO GRAVITY. STAT LOCK R THIGH. BED IN LOWEST POSITION. PT REPOSITIONED. FALL PROTOCOL IN PLACE. CALL LIGHT WITHIN REACH.
--- NOTE | 2020-01-07 09:20 | NUR ---
PT OBTUNDED. ALL PO MEDS HELD. MICHAEL GONZALEZ NP MADE AWARE. HEPARIN SQ GIVEN. PT BLINKS EYES BUT DOES NOT RESPOND TO VOICE OR PAINFUL STIMULI. TURNED AND REPOSITIONED PT. CALL LIGHT WITHIN REACH. WILL CONTINUE TO MONITOR.
--- NOTE | 2020-01-07 10:15 | NUR ---
INFORMED DEJAH RODRIGUEZ THAT PT'S B/P RUNS HIGH AND THIS MORNING THE PT'S B/P IS 161/100 (120) AND PT IS UNABLE TO TAKE PO MEDS DUE TO ALOC. MICHAEL STATED NO B/P MEDS WILL BE ORDERED AT THIS TIME. TO REPORT B/P GREATER THAT 170 SYSTOLIC.
--- NOTE | 2020-01-07 10:17 | NUR ---
MICHAEL GONZALEZ NP STATED SHE HAS READ THE PT'S ANGIO CT, NO NEW FINDING. MICHAEL STATED THE PT MAY BE SUFFERING THE EFFECTS OF SEDATION. ATIVAN, MORPHINE AND SEROQUEL WILL BE HELD AT THIS TIME. WILL CONTINUE TO MONITOR.
--- NOTE | 2020-01-07 10:19 | NUR ---
INFORMED DEJAH RODRIGUEZ THAT PT'S B/P RUNS HIGH AND THIS MORNING THE PT'S B/P IS 161/100 (120) AND PT IS UNABLE TO TAKE PO MEDS DUE TO ALOC. MICHAEL STATED NO B/P MEDS WILL BE ORDERED AT THIS TIME. TO REPORT B/P GREATER THAT 179 SYSTOLIC.
--- NOTE | 2020-01-07 12:14 | NUR ---
ZOSYN IVPB INITIATED. PT HAD SMALL LOOSE BM. PT CHANGED AND GIVEN BEDBATH. PT TOLERATED ACTIVITY WELL. PT HAS NO RESPONSE TO ACTIVITY, REMAINS OBTUNDED WITH NO RESPONSE TO PAINFUL STIMULI. RESP SHALLOW, NO RESP DISTRESS NOTED. N/C AT [address] BED IN LOWEST POSITION. CALL LIGHT WITHIN REACH.
[2020-01-07 12:54] VITALS: BP 166/111
--- NOTE | 2020-01-07 14:28 | NUR ---
PT REPOSITIONED. NO RESPONSE TO VERBAL COMMANDS OR PAINFUL STIMULI. RESP EVEN, SHALLOW. N/C AT 2LPM INTACT. NO S/S OF PAIN OR DISCOMFORT NOTED. WILL CONTINUE TO MONITOR.
--- NOTE | 2020-01-07 15:19 | NUR ---
Follow-up Nutrition Assessment: ICU6 MILAGROS FRIAS 64M HR FU Dx: Syncope, influenza B, dehydration PMHx: HTN Labs: (01/06) Glu 130H, BUN 22H, Meds: Lactinex, Norvasc, Pepcid, Sodium Chloride, Vancomycin, Zosyn PRN meds: Robitussin, Morphine, Tessalon, Tylenol, Ventolin Diet: Mechanical soft PO Intake: No intake yet d/t pt being altered per RN. TF intake: (01/03) 1058ml, (01/02)945ml, (01/01)1004ml, (12/31)1078ml Weights: (01/04)68kg, (01/03)72kg, (01/02) 72kg Edema: None noted Last BM: 01/06 very small watery stool GI: Patient unable to eat at this time Skin: skin intact Jagjit: 11 I/Os: (01/06) 886/1075ml = -189ml, (01/05)1192/1500ml = -308ml, (01/04) 2045ml/1500ml = 545ml, (01/03) 1959/1650ml = 309ml, (01/02)1952/2100ml = -148ml, (01/01)1791/1650ml = 141ml Per last RD note (01/04), pt was tolerating pivot with GRV=0ml. Pt was on CPAP, but pt did not tolerate for very long with persistent agitation. RN reported loose stood during visit, but possibly d/t abx. RD Note (01/06): Per progress note (01/05), pt was extubated yesterday and had bedside swallow evaluation. Pt's diet was advanced to mechanical soft diet, but pt was confused and on Oximizer. Pt was seen lying in bed with no signs of distress. Pt is not on ventilator anymore, and his diet was changed to mechanical soft. Talked to RN regarding pt's condition. Per RN, pt is still very altered and confused, and pt had not eaten anything because of this. RN reported a very small watery stool today and hypoactive bowel sound. Estimated Nutritional Needs Based on current body weight (68 kg) Energy:2748-1575 kcal/day (25-30 kcal/kg for maintenance) Protein: 54-68 g/day (0.8-1 g/kg for maintenance) Fluid: 0212-3839 mL/day (1 mL/kcal) or per MD Nutrition Diagnosis: (Resolved) 1. Inadequate intake of enteral nutrition r/t intake of TF not meeting needs a/e/b current rate of 35ml/hr provides 54% of kcal needs. (Resolved) 2. Altered GI function r/t critical illness and intubation a/e/b pt dependence on nutrition support. (New) 3. Inadequate energy and protein intake r/t pt being altered a/e/b RN reported pt not able to consume his food d/t being confused and altered. Intervention: 1. Recommend continue mechanical soft diet Monitor/Evaluate: Goal: Have pt meet at least 75% of estimated needs via PO diet (not met, ongoing) Monitor: PO intake, Labs, GI function, Body weight, and need for nutritional supplements F/U in 2-3 days as high risk 01/08-
--- NOTE | 2020-01-07 15:19 | NUR ---
1. Recommend continue mechanical soft diet
--- NOTE | 2020-01-07 16:18 | NUR ---
PT HAD SMALL LOOSE BM. PT CLEANED AND REPOSITIONED. LAMB CATH AND MOUTH CARE GIVEN. PT REMAINS OBTUNDED. NO RESPONSE TO PAINFUL STIMULI. EYES OPEN AND BLINK ONLY. CALL LIGHT WITHIN REACH. BED IN LOWEST POSITION. N/C AT 2 LPM INTACT.
[2020-01-07 16:20] VITALS: BP 156/99
--- NOTE | 2020-01-07 18:47 | NUR ---
PT IS OBTUNDED, WITH MINIMAL RESPONSE TO TACTILE STIMULI. N/C AT 2LPM INTACT. IV CATH TO LFA SITE WNL. LAMB CATH PATENT. PT TURNED AND REPOSITIONED AND DROPLET PRECAUTIONS MAINTAINED THROUGH OUT SHIFT. CALL LIGHT WITHIN REACH. BED IN LOWEST POSITION. FALL PROTOCOL MAINTAINED. WILL ENDORSE CALL CARE TO NOC RN.
--- NOTE | 2020-01-07 19:30 | NUR ---
REC'D REPORT FROM AMBROSIO SANTANA TO ASSUME CARE. PT SEEN WITH EYES OPEN, OBTUNDED. UNABLE TO TRACK WITH EYES. UNABLE TO FOLLOW COMMANDS. NO MOTOR RESPONSE TO PAINFUL STIMULI. PERRLA NOTED WITH PUPILS 3MM BRISK APOLONIA. NO VERBAL RESPONSE. RESPS E/U ON O2 2LPM VIA NC. CHEST RISE EQUAL AND SYMMETRICAL. LUNG SOUNDS DIM APOLONIA. PRODUCTIVE COUGH NOTED, ABLE TO COUGH UP SECRETIONS, NOTED WITH SMALL AMT OF THICK YELLOW. SUPERVISOR BIT AND SHANK DEPARTMENT IN [place] SHOWING ST WITH HR 114. NO S/SX OF CP, SYNCOPE OR DIZZINESS. PT KEPT NPO AT THIS TIME, NEURO STATUS NOT INTACT. ABD FLAT, SOFT, NONTENDER TO TOUCH. BOWEL SOUNDS HYPOACTIVE. NO BM NOTED. SKIN INTACT; WARM DRY TO TOUCH. GEN WEAKNESS NOTED. TURNED AND REPOSITIONED Q2H FOR PRESSURE RELIEF. FALL PRECAUTION IN PLACE. DROPLET PRECAUTIONS APPLIED AND MAINTAINED. ALL NEEDS MET AT THIS TIME. WILL CONTINUET TO MONITOR.
[2020-01-07 19:32] VITALS: BP 151/103
--- NOTE | 2020-01-07 22:15 | NUR ---
PT SEEN SITTING UP ON SIDE OF BED ATTEMPTING TO GET UP. PT PLACED BACK IN BED. PT APPEARS CONFUSED, UNABLE TO FOLLOW COMMANDS, NO VERBAL RESPONSE NOTED. SLIGHT WITHDRAW TO PAIN NOTED. ACTIVE ROM NOTED TO BUE.
[2020-01-08] VITALS (7 sets, daily range): BP systolic 117–150; BP diastolic 76–100; Ht 167.6 cm; Wt 63.0 kg
--- NOTE | 2020-01-08 04:30 | NUR ---
PT AWAKE WITH EYES OPEN, ABLE TO TRACK WITH EYES. VERBALLY RESPONSIVE, SLOW TO ANSWER, SPEECH MUMBLED. PT ORIENTED X3 (PERSON, BIRTHDATE, PLACE). ACTIVE ROM NOTED ALL EXT.
--- NOTE | 2020-01-08 05:10 | NUR ---
PT PROVIDED WATER, PT DRANK 1 CUP OF WATER WITHOUT ANY DIFFICULTY.
--- NOTE | 2020-01-08 05:19 | NUR ---
PT WITH BM NOTED. MODERATE SIZED LOOSE STOOL NOTED. GOOD DI CARE PROVIDED. ALL LINENS CHANGED. REPOSITIONED TO COMFORT.
[2020-01-08 05:27] LABS: BASOPHIL % 0.2 % (0-2)
[2020-01-08 05:38] LABS: CALCIUM 9.6 mg/dL (8.5-10.1); CARBON DIOXIDE 27.2 mmol/L (21-32); CHLORIDE SERUM 107 mmol/L (98-107); CREATININE SERUM 0.8 mg/dL (0.7-1.3); GFR1 > 60 mL/min; GLUCOSE SERUM 125 mg/dL (74-106); MAGNESIUM 2.6 mg/dL (1.8-2.4); PLATELET COUNT 420 x10^3mcL (130-400); SODIUM SERUM 145 mmol/L (136-145)
--- NOTE | 2020-01-08 12:00 | NUR ---
THE PT IS ON ROOM AIR WITH EASY BREATHING AND S02 ON THE MID 90'S. HIS CALLED AND REPORTED THAT IS NOW FOLLOWING COMMANDS AND CONVERSING. WE THEN SET UP A TIME WHEN SHE COULD CALL HIS CELLPHONE WHILE I WAS THERE -GOWNED UP- TO MAKE SURE HE GOT THE PHONE. SHE DID CALL AND HE SPOKE TO HER. SHE WAS OF COURSE HAPPY AND WAS THE PT. V/S - SO2 REMAIN STABLE.
--- NOTE | 2020-01-08 19:10 | NUR ---
RECEIVED REPORT FROM GASOLINE ENGINE INSPECTOR MICHAEL. ASSUMING ALL CARE
--- NOTE | 2020-01-08 22:05 | NUR ---
RECEIVED PT LAYING IN BED. PT IS A/OX3, CONFUSED AT TIMES, PT REORIENTED. BREATHING IS E/U ON 3 LPM VIA NC. SYMMETRICAL CHEST EXPANSION NOTED. LAC AND LH IV'S INTACT/SECURED, NO S/S OF INFILTRATION NOTED. F/C INTACT/SECURED, DRAINING VIA GRAVITY WITH YELLOW COLORED URINE. PT CONNECTED TO FULL WATER COMMISSIONER/CONTINOUS PULSE OXIMETRY. HOB ELEVATED 30 DEGREES. BED IN LOW POSITION. CALL LIGHT IN REACH. SEE NURSE SHIFT ASSESSMENT FOR FURTHER DETAIL
[2020-01-09 03:05] VITALS: BP 153/91
--- NOTE | 2020-01-09 04:30 | NUR ---
PT HAD A SMALL BROWN BM. FULL BED BATH PROVIDED. LINENS/GOWN CHANGED. PERICARE AND LAMB CARE PROVIDED. EXTREMITIES OFFLOADED FOR PRESSURE RELIEF
[2020-01-09 06:07] LABS: BASOPHIL % 0.4 % (0-2); RED CELL DISTRIBUTION WIDTH 12.8 % (11.5-14.5)
[2020-01-09 06:18] LABS: CALCIUM 9.7 mg/dL (8.5-10.1); CARBON DIOXIDE 27.9 mmol/L (21-32); CHLORIDE SERUM 112 mmol/L (98-107); CREATININE SERUM 0.9 mg/dL (0.7-1.3); GFR1 > 60 mL/min; GLUCOSE SERUM 129 mg/dL (74-106); MAGNESIUM 2.6 mg/dL (1.8-2.4); SODIUM SERUM 151 mmol/L (136-145)
[2020-01-09 06:20] LABS: PLATELET COUNT 426 x10^3mcL (130-400)
--- NOTE | 2020-01-09 07:10 | NUR ---
REPORT GIVEN TO HEDY SANTANA FOR CONTINUITY OF CARE. ALL QUESTIONS/CONCERNS ADDRESSED. ENDORSING ALL CARE
[2020-01-09 07:45] VITALS: BP 148/98
--- NOTE | 2020-01-09 09:13 | NUR ---
PT ASSISTED TO BEDSIDE COMMODE. HAD LARGE BROWN LIQUID BM. PT CLEANED AND GOWN/LINENS CHANGED. PT TOLERATED WELL. VITALS STABLE.
[2020-01-09 12:09] VITALS: BP 143/97
--- NOTE | 2020-01-09 13:15 | NUR ---
PT SEEN BY DR LOPEZ. UPDATES PROVIDED. ORDERS RECEIVED TO DC PO SODIUM, 1L D5W @ 50 CC/HR, AND [place] 40MEQ PO.
--- NOTE | 2020-01-09 15:30 | NUR ---
PT PUT ON ROOM AIR BY RT. TOLERATING WELL.
--- NOTE | 2020-01-09 15:32 | NUR ---
PT RESTLESS, CLUTCHING LINES BUT NOT PULLING LINES. REPORTS FEELING CONFUSED. BELIEVES HE IS AT WORK AND IS INQUIRING ABOUT STATUS OF PROJECTS. REORIENTED TO PLACE AND TIME. PT NOW RESTING COMFORTABLY IN BED.
[2020-01-09 16:30] VITALS: BP 133/94
--- NOTE | 2020-01-09 19:25 | NUR ---
RECEIVED PT FROM PREVIOUS SHIFT NURSE. PT AOX2, ORIENTED TO PERSON AND PLACE. CONFUSED AT TIMES. DENIES SOB/DIFFICULTY BREATHING ON RA. ON MONITOR #6, READING ST. DENIES CP/PRESSURE. IV TO LFA, LAC, INTACT AND PATENT. LAMB CATH IN PLACE, YELLOW OUTPUT NOTED. BED IN LOWEST POSITION. CALL LIGHT WITHIN REACH. WILL CONTINUE TO MONITOR.
[2020-01-09 20:10] VITALS: BP 116/85
--- NOTE | 2020-01-09 21:05 | NUR ---
PT AGITATED AND REMOVING BIPAP, RT AT BEDSIDE. PLACED PT ON 5L OXYMIZER. SATING AT 96%.
--- NOTE | 2020-01-09 23:10 | NUR ---
PT ACCIDENTALLY REMOVED LFA IV, TIP NOTED TO BE INTACT. LAC IV LEAKING, REMOVED, TIP INTACT. NEW IV PLACED TO RFA, INTACT AND PATENT.
[2020-01-09 23:15] VITALS: BP 131/89
--- NOTE | 2020-01-10 02:42 | NUR ---
PT BECAME CONFUSED AND ACCIDENTALLY REMOVED RFA IV, TIP INTACT. NEW IV PLACED TO RFA, INTACT AND PATENT. REORIENTED PT TO ROOM AND SURROUNDINGS.
[2020-01-10 03:20] VITALS: BP 129/90
--- NOTE | 2020-01-10 03:30 | NUR ---
PT RESTING IN BED. RR EVEN AND UNLABORED. IN NO ACUTE DISTRESS. CALL LIGHT WITHIN REACH. BED IN LOWEST POSITION.
[2020-01-10 05:53] VITALS: BP 148/94
[2020-01-10 06:23] LABS: BASOPHIL % 0.2 % (0-2); RED CELL DISTRIBUTION WIDTH 13.3 % (11.5-14.5)
[2020-01-10 06:29] LABS: CALCIUM 9.3 mg/dL (8.5-10.1); CARBON DIOXIDE 27.4 mmol/L (21-32); CHLORIDE SERUM 113 mmol/L (98-107); CREATININE SERUM 0.9 mg/dL (0.7-1.3); GFR1 > 60 mL/min; GLUCOSE SERUM 135 mg/dL (74-106); MAGNESIUM 2.4 mg/dL (1.8-2.4); SODIUM SERUM 150 mmol/L (136-145)
[2020-01-10 06:33] LABS: PLATELET COUNT 413 x10^3mcL (130-400)
[2020-01-10 08:00] VITALS: BP 153/98
--- NOTE | 2020-01-10 08:00 | NUR ---
PATIENT RECEIVED AWAKE BUT SEEMS A LITTLE CONFUSED. HE HAS SOME SHAKINESS WELL. HE WAS SET UP FOR THE MORNING MEAL AND HE STATES HE CAN FEED HIMSELF. ADVISED NOT TO GET UP IN HIS OWN HE MAY FALL. RACHEL HAS NOTED HEARTRATE AND AT TIMES UP TO 160'S. HIS BREATHING IS SHALLOW AND HE DENIES ANY COUGHING UP OF PHLEM AT THIS TIME. RACHEL HAS PULSES PALPABLE TO ALL EXTREMTES AND ABDOMEN IS SOFT AND NON DISTENDED. HE HAS A LAMB TO GRAVITY AND URINE IS DYLAN AND CLEAR. PATIENT HAS HISTORY OF PREVIOUS COVID POSITIVE AND AWAITING THE SECOND NEGATIVE FORM LAB. MADDY AARON BEEN ON HEPARIN SQ AND HAD NOTED INFLUENZA B POSITIVE. PATIENT HAS BEEN SEEN BY [facility] FOR INFECTION AND DR RO FOR HIS CARDIAC ISSUES. PATIENT AHS BEEN ON A MECHANICAL SOFT DIET AND WILL MONITOR FOR TOLERANCE AT THIS TIME. PATIENT WAS EXUBATED ON THE AND HAS BEEN NOTED CONFUSED AT TIMES. PER REPORT SEEMS TO BE MORE ORIENTED TODAY. VITALS AT THIS TIME AT 98.5, 97% ON ROOM AIR, 20, 153/98, 127.
--- NOTE | 2020-01-10 10:44 | NUR ---
PATIENT IS TO BE TRANSFER TO THE FLOOR TO ROOM 237. HE HAS NOT HAD HIS COVID NEGATIVE BUT WILL BE PLACED IN ISOLATION IN TWO MULLENS TILL THAT IS RECEIVED. PATIENT IS AWARE AND AGREEABLE. PATIENT DID NOT EAT MUCH BUT NO INDICATION OF ASPIRATION OR ANY COUGH NOTED. PATIENT IS AWARE HE IS TO ASK FOR ASSISTANCE TO THE COMODE HE IS TOO SHAKEY FOR GETTING UP ON HIS OWN. PATIENT TOOK ALL HIS MEDICATIONS AND IS ON K RIDER AT THIS TIME. WILL CONTINUE TO MONITOR.
--- NOTE | 2020-01-10 11:34 | NUR ---
GAVE REPORT TO LEXY IN [facility] AND SHE IS EXPECTING HIME. WILL TAKE VITALS AND GIVE HIS 12 O CLOCK MEDICATION AND TRANSFER INDICATED.
[2020-01-10 12:30] VITALS: BP 149/102
--- NOTE | 2020-01-10 12:30 | NUR ---
COVID RESULT NEGATIVE. DR GO MADE AWARE. PT STILL ON CONTACT/DROPLET ISOLATION PER DR GO.
--- NOTE | 2020-01-10 13:01 | NUR ---
CALLED TO AND INFORMED THE SECOND RESULTS OF COVID WHICH IS NEGATIVE AND HE STATED THAT PATIENT WAS + AND REMAINS ON ISOLATION.
--- NOTE | 2020-01-10 13:18 | NUR ---
AT 1113 - RECEIVED REPORT FROM MAX JO AT 1230 - RECEIVED PT VIA BED ACCOMPANIED BY MAX JO. AAOX4. C/O MILD DIZZINESS. TREMORS NOTED ON BUE. RES E/U, NO SOB NOTED. O2 SAT AT 96% ON ROOM AIR. TELE MONITOR 9 SHOWING SR-ST, DENIES CHEST PAIN/PRESSURE. NO GI/ COMPLAINT. IV SITE TO FRA INFUSING 1/2 NS AND K RIDER. IV SITE CDI AND PATENT. DENIES PAIN/DISCOMFROT AT THIS TIME. SKIN DRY, WARM, AND INTACT.
--- NOTE | 2020-01-10 13:49 | NUR ---
PHYSICAL THERAPY NOTE WILL WITHHOLD EVAL TODAY PENDING CLEARANCE FOR MD AND NURSING. WILL FOLLOW UP NEXT VISIT.
--- NOTE | 2020-01-10 13:53 | NUR ---
DC'D 1/2 NS. D5 1/2NS INFUSION STARTED AT 50ML/HR PER ORDERED.
--- NOTE | 2020-01-10 15:27 | NUR ---
Follow-up Nutrition Assessment: 237B MILAGROS FRIAS 64M HR FU Dx: Syncope, influenza B, dehydration PMHx: HTN Labs: (01/09) Na 150H, Cl 113H, Glu 135H, BUN 29H, H/H 12.8/38L Meds: Dulcolax, KCL, Lactinex, Norvasc, Pepcid PRN meds: Robitussin, Tessalon perles, Tylenol, Ventolin Diet: Mechanical soft-chopped PO Intake: 10-25% x 5 meals with average PO intake of 21%. Not adequate Weights: (01/09)63kg, (01/04)68kg, (01/03)72kg, (01/02) 72kg Edema: no edema noted Last BM: no BM noted. Skin: Skin intact Jagjit: 14 I/Os: (01/09)1817/1200ml = 517ml, (01/08)1095/770ml = 325ml, (01/07) 460/1000ml = -540ml, (01/06) 886/1075ml = -189ml, (01/05)1192/1500ml = -308ml, (01/04) 2045ml/1500ml = 545ml Per RD note (01/06), pt was extubated and had a bedside swallow evaluation. Pt was seen lying in bed with no signs of distress. Pt is not on ventilator anymore, and his diet was changed to mechanical soft. Talked to RN regarding pt's condition. Per RN, pt is still very altered and confused, and pt had not eaten anything because of this. RN reported a very small watery stool today and hypoactive bowel sound. RD Note (01/09): Per progress note (01/08), pt was doing better and more responsive. Post treatment for COVID 19 1st retest is negative, and 2nd test is pending. Pt was in the middle of being transferred out of ICU during bedside visit. Pt was transferred to [facility] in an isolation room. Per RN, pt only had a small portion of his lunch today, and pt didn't exhibit any GI distress or swallowing/chewing difficulties when eating. Additional, no BM so far per RN. Estimated Nutritional Needs Based on current body weight (68 kg) Energy:6571-5769 kcal/day (25-30 kcal/kg for maintenance) Protein: 54-68 g/day (0.8-1 g/kg for maintenance) Fluid: 4369-0257 mL/day (1 mL/kcal) or per MD Nutrition Diagnosis: (Resolved) 1. Inadequate intake of enteral nutrition r/t intake of TF not meeting needs a/e/b current rate of 35ml/hr provides 54% of kcal needs. (Resolved) 2. Altered GI function r/t critical illness and intubation a/e/b pt dependence on nutrition support. (ongoing) 3. Inadequate energy and protein intake r/t pt being altered a/e/b RN reported pt not able to consume his food d/t being confused and altered. Intervention: 1. Recommend continue mechanical soft diet 2. Recommend ensure enlive BID for poor PO intake. It will provide additional 700kcal and 40g protein. 3. Recommend encourage PO intake Monitor/Evaluate: Goal: Have pt meet at least 75% of estimated needs (not met, ongoing) Monitor: PO intake, Labs, GI function, Body weight, Diet tolerance F/U in 2-3 days as high risk 01/11-
--- NOTE | 2020-01-10 16:41 | NUR ---
CALLED REGARDING PT' STATUS. PROVIDED UPDATE PT IS CONFUSED AT TIMES AND BP IS STILL ELEVATED. OTHERWISE, STABLE. SEEMED APPRECIATIVE.
[2020-01-10 16:57] VITALS: BP 141/97
[2020-01-10 17:22] LABS: CALCIUM 9.3 mg/dL (8.5-10.1); CARBON DIOXIDE 28.7 mmol/L (21-32); CHLORIDE SERUM 111 mmol/L (98-107); CREATININE SERUM 0.8 mg/dL (0.7-1.3); GFR1 > 60 mL/min; GLUCOSE SERUM 135 mg/dL (74-106); POTASSIUM SERUM 3.1 mmol/L (3.5-5.1); SODIUM SERUM 147 mmol/L (136-145)
--- NOTE | 2020-01-10 18:46 | NUR ---
K RIDER 20 MEQ STARTED AT 50ML/HR.
--- NOTE | 2020-01-10 19:16 | NUR ---
NO SIGNIFICANT CHANGES NOTED, PT RESTING IN BED WITHOUT APPARENT DISTRESS. WILL ENDORSE TO NEXT SHIFT.
[2020-01-10 20:40] VITALS: BP 140/93
--- NOTE | 2020-01-10 20:50 | NUR ---
PT. AWAKE, ALERT, ORIENTED X2. CONFUSED MOSTLY. REQUIRES REORIENTATION FREQUENTLY. ABLE TO FOLLOW COMMANDS. BREATH SOUNDS CLEAR THROUGHOUT LUNG SALVADOR, RESP. EVEN, BLL DIMINISHED. PT. ON RA, O2 SAT. 97%. ABD. SOFT AND ROUND, BOWEL SOUNDS ACTIVE. DENIES ABD DEL ROSARIO, DENIES NAUSEA. NO EDEMA NOTED TO EXTREMITIES. PEDAL PULSES STRONG BLE. IV K RIDER INFUSING AT THIS TIME. IV SITE INTACT. BED LOW LAYING, ALARM ON. CALL LIGHT WITHIN REACH.
--- NOTE | 2020-01-11 00:58 | NUR ---
PT. VERY CONFUSED, GOT OOB AND WALKING TO DOOR, TELE PULLED OFF AND IV TUBINGS WRAPPED AROUND IV POLE. PT. ALSO REMOVED HIS GOWN. PT. TRANSFERRED TO [facility] FOR SAFETY AND CLOSER OBSERVATION. BELONGINGS, INCLUDING CELL PHONE TRANSFERRED WITH HIM. WILL CONTINUE TO MONITOR.
--- NOTE | 2020-01-11 02:15 | NUR ---
PT. APPEARS TO BE SLEEPING AT THIS TIME. PT. IN FULL VIEW OF NURSES STATION. WILL CONTINUE TO MONITOR.
--- NOTE | 2020-01-11 03:59 | NUR ---
PT. AWAKE, APPEARS COLD. PT. APPEARS TO BE INCONTINENT OF STOOL. LARGE AMOUNT OF WATERY STOOL NOTED. PT. CLEANED AND MADE COMFORTABLE. REMAINS WITHIN VIEW OF NURSES STATION.
--- NOTE | 2020-01-11 06:54 | NUR ---
PT. STILL SLEEPING AT THIS TIME. NO C/O PAIN, NO RESP. DISTRESS. IV SITE REMAINS INTACT. WILL ENDORSE PT. CARE TO INCOMING NURSE.
[2020-01-11 07:30] VITALS: BP 139/65
--- NOTE | 2020-01-11 08:23 | NUR ---
PATIENT IS A&OX2 TO PERSON AND TIME, REMAINS CONFUSED, BUT COOPERATES WELL. PATIENT STATES THAT THERE IS A [facility]ER[facility] OUTSIDE OF HIS ROOM AND THAT THEY WILL BE RECORDING FOR A SHOW. TELE #9, NSR, DENIES ANY CHEST PAIN. PERIPHERAL PULSES PALPABLE W/ NO SIGNS OF EDEMA. LUNG SOUNDS DIMINISHED BILATERALLY, ON RA, O2 SAT 97%, DENIES SOB. NORMAOCTIVE BSX4, ABD SOFT AND FLAT. LAMB CATHETER REMAINS DRAINING CLEAR YELLOW URINE. GENERALIZED WEAKNESS WHILE AMBULATING. SKIN IS INTACT. DENIES ANY PAIN AT THIS TIME. IV SITE IS CDI. WILL CONTINUE TO MONITOR PATIENT.
--- NOTE | 2020-01-11 12:43 | NUR ---
LAMB CATHETER WAS REMOVED PATIENT IS ABLE TO USE THE RESTROOM AND AMBULATE WITH MILD GENERALIZED WEAKNESS. WILL CONTINUE TO MONITOR PATIENT. PATIENT IS CURRENTLY EATING LUNCH AT THIS TIME.
[2020-01-11 13:14] LABS: CALCIUM 9.4 mg/dL (8.5-10.1); CARBON DIOXIDE 25.5 mmol/L (21-32); CHLORIDE SERUM 106 mmol/L (98-107); GFR1 > 60 mL/min; GLUCOSE SERUM 85 mg/dL (74-106); SODIUM SERUM 143 mmol/L (136-145)
[2020-01-11 13:45] VITALS: BP 129/58
--- NOTE | 2020-01-11 18:43 | NUR ---
PATIENT REMAINS CONFUSED AT THIS TIME. MEDICATIONS WERE GIVEN AND K-RIDER WAS STARTED. PATIENT DENIES ANY PAIN IN THE IV SITE POTASSIUM IS RUNNING. PATIENT IS SITTING IN THE CHAIR WHILE EATING DINNER. ALL QUESTIONS AND CONCERNS WERE ADDRESSED. WILL CONTINUE TO MONITOR.
[2020-01-11 18:56] VITALS: BP 128/90
[2020-01-11 20:40] VITALS: BP 98/63
--- NOTE | 2020-01-11 20:40 | NUR ---
PT IS CONFUSED. ABLE TO FOLLOW SIMPLE COMMANDS. TELE #9, NSR. NO SIGN OF DISTRESS NOTED. PULSES ARE PRESENT. NO EDEMA NOTED. LUNGS CLEAR IN ALL FEILDS. ON RA, DENIES ANY SOB. EQUAL CHEST RISE AND FALL. BOWEL SOUNDS ARE PRESENT. ABD SOFT AND FLAT. SKIN WARM AND INTACT. NO SIGN OF PAIN NOTED. IV WAS NOTED TO BE OFF AND ON THE FLOOR. WHEN ASKED THE PT WHAT HAPPENED, PT WAS UNABLE TO STATE. NO BLEEDING NOTED ON PT. NEW IV INSERTED ON LFA 22G. PT TOLERATED WELL AND SECURED WITH KERLIX WRAP. PT ON CONTACT/DROPLET ISO FOR COVID. BED IS AT LOWEST SETTING. CALL LIGHT WITHIN REACH. WILL CONTINUE TO MONITOR.
--- NOTE | 2020-01-12 01:08 | NUR ---
PT IS RESTING IN BED. NO SIGN OF DISTRESS NOTED. EQUAL CHEST RISE AND FALL. NO SIGN OF RESP DISTRESS. BED IS AT LOWEST SETTING. CALL LIGHT WITHIN REACH. WILL CONTINUE TO MOTNIOR.
--- NOTE | 2020-01-12 05:01 | NUR ---
PT IN AND OUT OF BIGEMINY. PT IS RESTING IN BED WITH BOTH EYES CLOSED. NO SIGN OF DISTRESS NOTED. PT VS ARE STABLE. MD VASQUEZ WAS CALLED AND NOTIFIED. TO ORDER A STAT EKG. WILL CONTINUE TO MONITOR PT.
--- NOTE | 2020-01-12 05:21 | NUR ---
RT AT BEDSIDE FOR STAT EKG.
--- NOTE | 2020-01-12 06:34 | NUR ---
PT IS RESTING IN BED. PT IS SEEM TO BE MILDY PARANOID THIS AM, BUT CALM. STATING THAT THE PPL ON THE TV WERE AFTER HIM AND STAFF IN THE HOSPITAL WERE TRYING TO STEAL HIS MONEY WHILE POINTING AT THE TV. MD VASQUEZ WAS MADE AWARE. CONSULT TO BE ADDED. NO OTHER EVENT AT THIS TIME. BED IS AT LOWEST SETTING. WILL ENDORSE TO AM NURSE.
[2020-01-12 06:38] VITALS: BP 120/79
[2020-01-12 07:04] LABS: CALCIUM 9.2 mg/dL (8.5-10.1); CARBON DIOXIDE 24.6 mmol/L (21-32); CHLORIDE SERUM 105 mmol/L (98-107); CREATININE SERUM 0.9 mg/dL (0.7-1.3); GFR1 > 60 mL/min; GLUCOSE SERUM 111 mg/dL (74-106); POTASSIUM SERUM 3.7 mmol/L (3.5-5.1); SODIUM SERUM 141 mmol/L (136-145)
--- NOTE | 2020-01-12 07:30 | NUR ---
RECEIVED PATIENT IN DROPLET AND CONTACT ISOLATION. PATIENT IS SITTING UP ON THE SIDE OF THE BED. HL RT F/A. TELE 9 NSR. AMBULATES AD JEANE. ALERT CONFUSED AT TIMES. NO RESP DISTRESS NOTED. WILL CONTINUE TO MONITOR.
[2020-01-12 08:30] VITALS: BP 119/86
--- NOTE | 2020-01-12 13:29 | NUR ---
PATIENT REMAINS IN ISOLATION. SITTING UP ON THE SIDE OF THE BED EATING LUNCH TRAY. APPETITE POOR. NO RESP DISTRESS NOTED. NO SOB OR COUGH. RESP EVEN AND UNLABORED, ON ROOM AIR SAT 96%. NO C/O PAIN OR DISCOMFORT. PT WAS ABLE TO SPEAK TO ON PHONE EARLIER. NO ACUTE DISTRESS NOTED.
[2020-01-12 14:28] VITALS: BP 119/86
[2020-01-12 14:30] VITALS: BP 98/72
--- NOTE | 2020-01-12 15:15 | NUR ---
PATIENT'S PLAN OF CARE WAS DISCUSSED AND REVIEWED WITH SAFETY ADVISOR:OVIDIO HUSTON. I HAVE REVIEWED THE DATA COLLECTION BY SAFETY ADVISOR (NAME):OVIDIO HUSTON. ENTERED ON (DATE/TIME):01/12/20. I CONCUR WITH THE DATA AND ANY EXCEPTIONS OR COMMENTS ARE LISTED BELOW:
--- NOTE | 2020-01-12 15:18 | NUR ---
PATIENT CONTINUES TO SIT UP ON THE SIDE OF THE BED. REQUESTING ENSURE TO DRINK. MESSAGE SENT TO DIETARY FOR ENSURE. NO CHANGE IN CONDITION NOTED. REMAINS ALERT AND ORIENTED X 3. SOMETIMES SLOW TO ANSWER. NO ACUTE DISTRESS NOTED.
[2020-01-12 17:50] VITALS: BP 102/71
--- NOTE | 2020-01-12 17:57 | NUR ---
PATIENT REMAINS IN DROPLET/CONTACT ISOLATION. SITTING UP ON THE SIDE OF THE BED EATING DINNER TRAY. PATIENT APPEARS MORE ALERT AND ORIENTED. SPEECH CLEAR AND ANSWERS QUESTIONS MORE QUICKLY. DENIES ANY SOB OR COUGH OF PAIN. VERY COOPERATIVE WITH CARE. NO ACUTE RESP DISTRESS NOTED. NO HALLUCINATIONS NOTED THIS SHIFT.
--- NOTE | 2020-01-12 20:02 | NUR ---
REEIVED PT SITTING ON THE EDGE OF THE BED AAO ABLE TO FOLLOW COMMANDS , LUNG SOUNDS DIMINISHED DRY COUGH NOTED, SAT 97% NO RESP DISTRESS NOTED , PT'S ON TELE NIMBER [address] HR 103 SL TO RFA INTACT FLUSHING WELL , CALL LIGHT WITHIN PT'S REACH, WILL CON'T TO MONITOR AND ASSIT PT WITH CARE .
[2020-01-12 22:31] VITALS: BP 111/75
--- NOTE | 2020-01-13 00:41 | NUR ---
PT'S IN BED WITH EYES CLOSED , TELE NSR HR 88.
--- NOTE | 2020-01-13 05:56 | NUR ---
PT C/O HEADACHE / TYLENOL 650MG GIVEN PO , PT REMAINED AAO WITH PERIODS OF FORGETFULNESS V/S WNL NO TEMP NOTED, TELE ST HR 101, HL PATENT FLUSHING WELL , CALL LIGHT WITHIN PT'S REACH , PT;S AWAKE SITTING ON THE EGDE OF THE BED WATCHING TV
[2020-01-13 06:03] VITALS: BP 112/78
[2020-01-13 06:53] LABS: BASOPHIL % 0.2 % (0-2); PLATELET COUNT 370 x10^3mcL (130-400); RED CELL DISTRIBUTION WIDTH 13.8 % (11.5-14.5)
[2020-01-13 07:04] LABS: CALCIUM 9.3 mg/dL (8.5-10.1); CHLORIDE SERUM 100 mmol/L (98-107); CREATININE SERUM 0.9 mg/dL (0.7-1.3); GFR1 > 60 mL/min; GLUCOSE SERUM 115 mg/dL (74-106); POTASSIUM SERUM 3.4 mmol/L (3.5-5.1); SODIUM SERUM 135 mmol/L (136-145)
--- NOTE | 2020-01-13 07:30 | NUR ---
PT ENDORSE TO ME THIS MORNING, LAYING IN BED RESTING, AA/O X3/ IS ABLE TO FOLLOW SIMPLE COMMANDS AND LET NEEDS BE KNOWN. TELE 9 NSR NOTED DENIES ANY CP OR PRESSURE. LAST BM 01/11 FORMED PER PT. VOIDS FREELY/ AMB TO BATHROOM/ STEADY GAIT. REMAINS ON ISOLATION/ NEAR NURSING STATION. IV TO THE RFA INTACT AND PATENT/ 20 G/ HEPLOCKED. CALL LIGHT IN REACH. BED IN LOW POSITION. WILL CONTINUE TO MONITOR.
[2020-01-13 08:59] VITALS: BP 122/80
[2020-01-13 12:47] VITALS: BP 106/88
--- NOTE | 2020-01-13 14:25 | NUR ---
PT TOLERATED 40% OF LUNCH/ DENIES ANY DISCOMFORT OR SOB AT THIS TIME. WILL CONTINUE TO MONITOR.
--- NOTE | 2020-01-13 15:39 | NUR ---
Follow-up Nutrition Assessment: 246B MILAGROS FRIAS 64M HR FU Dx: Syncope, influenza B, dehydration PMHx: HTN Labs: (01/12) Na 135L, K 3.4L, glu 115H, BUN 23H, H/H 12.2/35L Meds: Aldactone, Dulcolax, Klor-con, Lactinex, Lopressor, Norvasc, Pepcid PRN meds: Haldol, robitussin, Tessalon, Tylenol, Ventolin Diet: Msoft-chopped diet with ensure BID PO Intake: 20-40% x 5 meals with average PO intake of 28% since last visit. Inadequate Weights: (01/12)63 kg, (01/09)63kg, (01/04)68kg Edema: none noted Last BM: 01/11 Skin: skin intact Jagjit: 17 I/Os: (01/09)1817/1200ml = 517ml, (01/08)1095/770ml = 325ml, (01/07) 460/1000ml = -540ml, (01/06) 886/1075ml = -189ml, (01/05)1192/1500ml = -308ml, (01/04) 2045ml/1500ml = 545ml Per Last RD note (01/09), post treatment for COVID 19 1st retest is negative, and 2nd test is pending. Pt was in the middle of being transferred out of ICU during bedside visit. Pt was transferred to [facility] in an isolation room. Per RN, pt only had a small portion of his lunch today, and pt didn't exhibit any GI distress or swallowing/chewing difficulties when eating. Additional, no BM so far per RN. Ensure BID was recommended RD Note (01/12): Per progress note (01/12), 3rd COVID test negative after treatment. Per RN, pt was planning to be d/c today, but d/t pt needing to be quarantine for a week, family members would not be ready until tomorrow. Per RN, pt had fair appetite, and pt had 50% of his breakfast today. RN also reported that pt had been drinking his ensure. RN stated that pt is currently improving (appetite is improving too) but gradually. Estimated Nutritional Needs Based on current body weight (68 kg) Energy:9572-0279 kcal/day (25-30 kcal/kg for maintenance) Protein: 54-68 g/day (0.8-1 g/kg for maintenance) Fluid: 7028-9711 mL/day (1 mL/kcal) or per MD Nutrition Diagnosis: (Resolved) 1. Inadequate intake of enteral nutrition r/t intake of TF not meeting needs a/e/b current rate of 35ml/hr provides 54% of kcal needs. (Resolved) 2. Altered GI function r/t critical illness and intubation a/e/b pt dependence on nutrition support. (ongoing) 3. Inadequate energy and protein intake r/t pt being altered a/e/b RN reported pt not able to consume his food d/t being confused and altered. Intervention: 1. Recommend continue mechanical soft diet 2. Recommend continue ensure BID for extra kcal and protein. It will provide 700kcal and 40g protein. Monitor/Evaluate: Goal: Have pt meet at least 75% of estimated needs (not met, ongoing) Monitor: PO intake, Labs, GI function, Body weight, Diet tolerance F/U in 3-5 days as moderate risk
--- NOTE | 2020-01-13 15:40 | NUR ---
1. Recommend continue mechanical soft diet 2. Recommend continue ensure BID for extra kcal and protein. It will provide 700kcal and 40g protein.
--- NOTE | 2020-01-13 15:45 | NUR ---
PT CALLED, UPDATE WAS GIVEN. PT WILL BE DC TOMORROW PER OUTDOOR RECREATION SPECIALIST MUTUC.
[2020-01-13 17:39] VITALS: BP 117/67
--- NOTE | 2020-01-13 18:00 | NUR ---
NO ACUTE CHANGES AT THIS TIME, NO ACUTE RESP DISTRESS OR SOB NOTED REMAINS ON RA SATING AT 97 %/ DENIES ANY SOB. CURRENTLY INFUSING POTASSIUM CHLORIDE 20 MEQ INFUSING AT 50ML/ HR. PT C/O BURNING DROPPED RATE AT 25ML/HR / TOLERATING WELL. TOLERATED 100% OF DINNER. WILL ENDORSE TO INCOMING RN.
--- NOTE | 2020-01-13 19:27 | NUR ---
PT WAS SEEN FOR DYSPHAGIA.PT HAD POCKETING FOR ALL THE CONSISTENCY TRIALS. ABSENT ORAL AND PHARYNGEAL MOVEMENT. RECOMMENDATION NOTHING BY MOUTH.
--- NOTE | 2020-01-13 19:50 | NUR ---
AWAKE AND ALERT, ORIENTED TO NAME, PLACE, TIME. FORGETFUL AT TIMES. AMBULATORY WITH STEADY GAIT. DENIES HAVING PAIN OR NAUSEA. AMBULATED TO RESTROOM WITH STEADY GAIT. VOIDED. IV KCL RIDER INFUSING AT 20ML/HR TO RIGHT FOREARM. BREATHING EVEN AND UNLABORED ON ROOM AIR. DENIES HAVING SHORTNESS OF BREATH. REINFORCED NEED TO USE CALL LIGHT TO CALL FOR ASSISTANCE, PLACED WITHIN EASY REACH. ON DROPLET/CONTACT ISOLATION.
--- NOTE | 2020-01-13 22:16 | NUR ---
IV K RIDER COMPLETED. FLUSHED IV, FLUSHED WELL. SALINE LOCKED. EYES CLOSED, BREATHING EVEN AND UNLABORED ON ROOM AIR. HOB ELEVATED 45 DEG. CALL LIGHT WITHIN EASY REACH.
--- NOTE | 2020-01-13 23:46 | NUR ---
EYES CLOSED, BREATHING EVEN AND UNLABORED ON ROOM AIR. HOB KEPT ELEVATED 30 DEG. CALL LIGHT WITHIN EASY REACH.
--- NOTE | 2020-01-14 04:51 | NUR ---
AWAKE, SITTING UP ON BED. CALL LIGHT WITHIN EASY REACH. BREATHING EVEN AND UNLABORED ON ROOM AIR.
[2020-01-14 05:51] VITALS: BP 122/77
--- NOTE | 2020-01-14 05:58 | NUR ---
SITTING ON BED. SOMEWHAT SLOW TO ANSWER, BUT ANSWERS APPROPRIATE. BREATHING EVEN AND UNLABORED ON ROOM AIR. DENIES HAVING SHORTNESS OF BREATH. VITAL SIGNS STABLE, O2 SAT 96%. CALL LIGHT WITHIN EASY REACH. KEPT ON DROPLET/CONTACT ISOLATION.
--- NOTE | 2020-01-14 07:09 | NUR ---
SITTING ON BED. IN NO ACUTE DISTRESS. ENDORSED TO NURSE TRISTEN
[2020-01-14 08:00] VITALS: BP 116/76
--- NOTE | 2020-01-14 08:00 | NUR ---
RECIEVED REPORT FROM [facility] NURSE. PATIENT IS CURRENTLY AWAKE ALERT AND ORIENTED. LUNG SOUNDS ARE CLEAR ON ROOM AIR. PATIENT IS ON ISOLATION PRECAUTIONS FOR RECENT HISTORY OF COVID-19. IV TO THE RIGHT HAND SALINE LOCKED. POSSIBLE DISCHARGE PENDING PROVIDER ORDERS. NO REPORT OF PAIN AT THIS TIME. NO SIGNS OR SYMPTOMS OF DISCOMFORT. CALL LIGHT WITHIN REACH. TELEMETRY MONITORING IN PLACE. WILL CONTINUE TO MONITOR.
[2020-01-14] MEDS ORDERED: NOR10 PO (08:47)
[2020-01-14] MEDS ORDERED: ALD25 PO (08:47)
[2020-01-14] MEDS ORDERED: METOPROLOL TART25 M1 PO (08:47)
[2020-01-14] MEDS ORDERED: TES100 PO (08:48)
[2020-01-14] MEDS ORDERED: VENTOLIN H0.09 MG/A1 IH (08:48)
[2020-01-14 11:55] VITALS: BP 135/60
--- NOTE | 2020-01-14 13:24 | NUR ---
DISCHARGE INSTRUCTIONS AND PRESCRIPTIONS PROVIDED TO PATIENT AND PATIENT'S SPOUSE. PATIENT AND SPOUSE INSTRUCTED ON IMPORTANCE OF SELF QUARANTEENING FOR 14 DAYS ONCE AT HOME. COUPON COLLECTION CLERK REMOVED FROM THE PATIENT AND RETURNED TO THE TELEMETRY STATION. IV CATH REMOVED INTACT AND DISCARDED. [facility] [employer]. EDUCATION PROVIDED REGARDING SELF MANAGEMENT OF RESPIRATORY SYMPTOMS. PATIENT VERBALIZED UNDERSTANDING. NO QUESTIONS OR CONCERNS AT THIS TIME. PATIENT AND SPOUSE INFORMED OF OUTPATIENT FOLLOW UP APPOINTMENT.
== END 2020-01-14 12:30 | disposition home or self-care (01) | DRG 870 ==
LOC: ED 09:23 → DU 12:14 → IC 12:14 → DU 13:59 → IC 12-22 15:05 → DU 01-10 12:26
PROVIDERS: Family Medicine; Internal Medicine; Internal Medicine Nephrology; Specialist; Student in an Organized Health Care Education/Training Program; ADMIT Internal Medicine
PROC: 5A1955Z Respiratory Ventilation, Greater than 96 Consecutive Hours (ICD-10-PCS; principal; 2019-12-22)
PROC: 0BH17EZ Insertion of Endotracheal Airway into Trachea, Via Natural or Artificial Opening (ICD-10-PCS; 2019-12-22)
DX: A41.9 Sepsis, unspecified organism (principal); J96.01 Acute respiratory failure with hypoxia; J10.08 Influenza due to other identified influenza virus with other specified pneumonia; J15.0 Pneumonia due to Klebsiella pneumoniae; G93.41 Metabolic encephalopathy; U07.1 COVID-19; J12.89 Other viral pneumonia; E22.2 Syndrome of inappropriate secretion of antidiuretic hormone; E87.6 Hypokalemia; I10 Essential (primary) hypertension; Z68.24 Body mass index [BMI] 24.0-24.9, adult; E86.0 Dehydration
CPT/HCPCS: 31500; 36600; 82962; 84439; 87804; 97116-GP; A4628; G0378; J0456; J1644; J1940; J2060; J2250; J2270; J2543; J2704; J2765; J3010; J3370; J3480; J3490; J3535; J7030; J7040; J7050; Q0092; Q9967

== ENCOUNTER 2020-02-19 21:10 | Emergency (ER) | payer BC ==
[~2020-02-19] VITALS: Ht 167.6 cm; Wt 68.0 kg
[~2020-02-19 21:10] MED LIST: ALD25 PO; AMLODIPINE BES1 CAP PO; METOPROLOL TART25 M1 PO; NOR10 PO; TES100 PO; VENTOLIN H0.09 MG/A1 IH
[2020-02-19 21:24] VITALS: Ht 167.6 cm; Wt 68.0 kg
[2020-02-20 00:39] VITALS: BP 146/88
== END 2020-02-20 00:39 | disposition home or self-care (01) ==
LOC: ED 21:10
DX: M54.12 Radiculopathy, cervical region (principal); R51 Headache; U07.1 COVID-19; I10 Essential (primary) hypertension